=== PATIENT | female | born 1980 | race Caucasian/White ===

== ENCOUNTER 2024-07-09 14:58 | Outpatient (CLI) | payer BC, SELFPAY ==
--- NOTE | ~2024-07-09 | XR_ITS ---
EXAMINATION: XR wrist RT min 3V DATE: 07/09/2024 15:20 INDICATION: Sprain of the carpal joint the right hand TECHNIQUE: Posteroanterior, ulnar deviation, oblique, and lateral views of the right wrist were obtai yonis. COMPARISON: none FINDINGS: Alignment is normal. No fracture. Joint spaces are normal. Soft tissues are unremarkable. IMPRESSION: 1. Negative right wrist radiographs. Reviewed, dictated and finalized at location A. E WORKER
== END 2024-07-09 14:59 | disposition home or self-care (01) ==
PROVIDERS: Visit Provider Plastic Surgery
DX: S63.511A Sprain of carpal joint of right wrist, initial encounter (principal); X58.XXXA Exposure to other specified factors, initial encounter
CPT/HCPCS: 73110

== ENCOUNTER 2024-08-01 13:38 | Outpatient (CLI) | payer BC, SELFPAY ==
--- NOTE | ~2024-08-01 | MR_ITS ---
EXAMINATION: MR wrist RT wo/w con DATE: 08/01/2024 14:24 INDICATION: Right wrist ganglion. Tear of the triangular fibrocartilage complex. Extensor carpi ulnar is tendinitis. TECHNIQUE: Magnetic resonance imaging (MRI) of the without and with 19 mL Multihance wrist was perfor med without intravenous contrast. Sequences performed include axial, sagittal and coronal T1-weighted FSE and T2-weighted FS FSE, sagittal PD-weighted FSE, sagittal fluid sensitive FSE STIR, axial T1-we ighted FS SE, and postcontrast, axial, sagittal and coronal T1-weighted FS FSE. COMPARISON: Wrist radiographs dated 07/09/2024 FINDINGS: Intrinsic ligaments: The lunotriquetral ligament is normal. There is partial tear of the central membranous component of t he scapholunate ligament. The dorsal and volar components of the scapholunate ligament remains normal . Triangular fibrocartilage complex (TFCC): The triangular fibrocartilage including its foveal and styloid attachments as well as the dorsal and volar radioulnar ligaments are normal. The ulnar collateral ligament, ulnotriquetral ligament and men iscal homologue are normal. There is a tear of the ulnar side of the extensor carpi ulnaris sub sheat h resulting in partial subluxation of the extensor carpi ulnaris tendon across the ulnar rim of the E CU groove. Extensor wrist: Extensor tendons of the wrist are normal. No tenosynovitis. Flexor wrist: The flexor tendons of the wrist are normal. No abnormality in the carpal tunnel with normal median n erve. Guyon's canal: Guyon's canal including the ulnar nerve and artery are normal. Bones/other: Small low signal intensity sclerotic bone island at the trapezoid. Normal marrow signal. No fracture, erosions, avascular necrosis or abnormal marrow replacing process. Mild osteoarthritis at the first- third carpal metacarpal joints. Joint spaces are otherwise normal with no focal cartilage defects jh reciated. No abnormally enhancing lesions identified. IMPRESSION: 1. Tear of the extensor carpi ulnaris sub sheath with partial subluxation of the otherwise normal ext ensor carpi ulnaris tendon across the ulnar rim of the ECU groove. 2. Partial tear of the central membranous component of the triangular fibrocartilage complex. 3. Mild osteoarthritis at the first-third carpometacarpal joints. Reviewed, dictated and finalized at location B. RMINATOR HELPER TERMITE IMPRESSION: 1. Tear of the extensor carpi ulnaris sub sheath with partial subluxation of th e otherwise normal extensor carpi ulnaris tendon across the ulnar rim of the EC U groove. 2. Partial tear of the central membranous component of the triangular fibrocart ilage complex. 3. Mild osteoarthritis at the first-third carpometacarpal joints.
== END 2024-08-01 13:39 | disposition home or self-care (01) ==
LOC: MICIMG 13:39
PROVIDERS: PCP Plastic Surgery; Visit Provider Plastic Surgery
DX: S66.811A Strain of other specified muscles, fascia and tendons at wrist and hand level, right hand, initial encounter (principal); S63.511A Sprain of carpal joint of right wrist, initial encounter; X58.XXXA Exposure to other specified factors, initial encounter
CPT/HCPCS: 73223; A9577

== ENCOUNTER 2024-11-27 00:49 | Day surgery (SDC) | payer BC, SELFPAY ==
[2024-11-20 10:01] VITALS: BMI 33.1
--- NOTE | 2024-11-20 10:08 | PC.NURSE ---
Report to the Outpatient Waiting Room, entrance under the green pavilion located off [facility], at time _0730_ on date _[id number]_. Planned Procedure Time: _0930_.? Time changes happen often and if your time is changed the preop area will call you the afternoon before. - You and your visitor will be asked to self-screen and do not enter if you have any COVID symptoms. Please call surgeon if you need to reschedule. - A mask is optional within the hospital at this time. Patients may have clear liquids (water, carbonated beverages, clear teas, apple juice) until 3 hours prior to surgery with a maximum of 20 ounces. - No food from midnight until time of surgery and no smoking, or chewing tobacco (or any form of nicotine). No chewing gum, candy or mints. Take only the following medications with a SIP of water on the morning of surgery: ___Zofran OK if needed.____ DO NOT STOP ANY OF YOUR OTHER PRESCRIPTION MEDICATIONS PRIOR TO SURGERY EXCEPT THE FOLLOWING Hold all vitamins and supplements for 3 days per anesthesiologist. Medications to discontinue per physician Date to take last dose Please no make-up, nail kiswahili, hairspray, perfume, deodorant, or body powder the day of surgery.? No jewelry (including any body piercings) or valuables the day of surgery, leave them at home.? Please take a shower or bath the night before, or the morning of, surgery with an antibacterial soap.? Wear comfortable, loose fitting clothing.? - Jewelry must be removed prior to entering the operating room.? Rings and piercings that are not removed may be cut off. - The hospital will not accept responsibility for valuables.? - Please leave all valuables, including medications, at home the day of surgery. If you are going home after surgery, a licensed driver service technician must drive you home.? - NO public transportation without another adult if you receive anesthesia. - We recommend that an adult stay with you for 24 hours following discharge. - We also recommend that you do not drive, make important decision, drink alcoholic beverages, or take any drugs that were not prescribed by your health care provider for at least 24 hours after your discharge time. Follow any additional instructions given to you from your surgeon. Telephone instructions given to _Kyleigh___and asked if any additional questions and then verbalized understanding. Patient advised to call surgeon office or pre surgery nurse liaison [phone] if any additional questions.
--- NOTE | 2024-11-20 10:15 | PC.NURSE ---
Report to the Outpatient Waiting Room, entrance under the green pavilion located off [facility], at time _0730_ on date _[id number]_. Planned Procedure Time: _0930_.? Time changes happen often and if your time is changed the preop area will call you the afternoon before. - You and your visitor will be asked to self-screen and do not enter if you have any COVID symptoms. Please call surgeon if you need to reschedule. - A mask is optional within the hospital at this time. - No food or drink from midnight until time of surgery and no smoking, or chewing tobacco (or any form of nicotine). No chewing gum, candy or mints. Take only the following medications with a SIP of water on the morning of surgery: __Zofran Ok if needed. DO NOT STOP ANY OF YOUR OTHER PRESCRIPTION MEDICATIONS PRIOR TO SURGERY EXCEPT THE FOLLOWING Hold all vitamins and supplements for 3 days per anesthesiologist. Medications to discontinue per physician Date to take last dose Please no make-up, nail stateless, hairspray, perfume, deodorant, or body powder the day of surgery.? No jewelry (including any body piercings) or valuables the day of surgery, leave them at home.? Please take a shower or bath the night before, or the morning of, surgery with an antibacterial soap.? Wear comfortable, loose fitting clothing.? - Jewelry must be removed prior to entering the operating room.? Rings and piercings that are not removed may be cut off. - The hospital will not accept responsibility for valuables.? - Please leave all valuables, including medications, at home the day of surgery. If you are going home after surgery, a licensed coach driver must drive you home.? - NO public transportation without another adult if you receive anesthesia. - We recommend that an adult stay with you for 24 hours following discharge. - We also recommend that you do not drive, make important decision, drink alcoholic beverages, or take any drugs that were not prescribed by your health care provider for at least 24 hours after your discharge time. Follow any additional instructions given to you from your surgeon. Telephone instructions given to Obdulio___and asked if any additional questions and then verbalized understanding. Patient advised to call surgeon office or pre surgery nurse liaison [phone] if any additional questions.
--- NOTE | 2024-11-26 14:48 | P.PNAN_ITS ---
Anes - Initial Pre Proc Eval Procedure: Operation Date: 11/27/24 09:00 Proposed Procedures p Right Wrist Arthroscopy and Extensor Carpi Ulnaris Sheath Repair - Aixa Owen MD Date/Time: 11/26/24 14:48 Surgeon: Aixa Owen MD Pre Op Diagnosis: Sprain of Carpal Joint Right Wrist Patient Data Age: 44 Gender: F Height: 1.68 m Weight: 93.2 kg Allergies Allergy/AdvReac Type Severity Reaction Status Date / Time Sulfa (Sulfonamide Allergy Rash Verified 11/27/24 07:41 Antibiotics) Home Medications ?Medication ?Instructions ?Recorded ?Confirmed ?Type famotidine 40 mg tablet (Pepcid) 40 mg PO HS 11/20/24 11/20/24 History galcanezumab-gnlm 120 mg/mL 120 mg subcut MONTHLY 11/20/24 11/20/24 History subcutaneous pen injector (Emgality Pen) hyoscyamine sulfate 0.375 mg 0.375 mg PO BID 11/20/24 11/27/24 History tablet,extended release,12 hr melatonin 10 mg capsule 10 mg PO HS 11/20/24 11/20/24 History metoclopramide HCl 5 mg tablet 5 mg PO QID PRN nausea and vomiting 11/20/24 11/20/24 History (Reglan) omeprazole 40 mg capsule,delayed 40 mg PO BID 11/20/24 11/20/24 History release ondansetron HCl 4 mg tablet 4 mg PO Q6-8H PRN nausea and 11/20/24 11/20/24 History vomiting topiramate 100 mg tablet 100 mg PO BID 11/20/24 11/20/24 History trazodone 50 mg tablet 50 mg PO HS 11/20/24 11/20/24 History cephalexin 500 mg capsule 500 mg PO Q12H #14 caps 11/27/24 Rx hydrocodone 5 mg-acetaminophen 325 1 tablet PO Q6H PRN pain #12 tabs 11/27/24 Rx mg tablet Patient hx anesthesia problems: none Family hx anesthesia problems: none Results Review: All pre-operative results and documents have been reviewed as part of the pre- operative evaluation. COUNTS INCLUDE 234 BEDS AT THE [facility] Past Medical History Medical History (Updated 11/27/24 @ 08:06 by Nima Nguyen DO) GERD (gastroesophageal reflux disease) Social History Social History Smoking status: Never smoker Anes - Eval Final PreProcedure Day of Procedure 11/26/24 14:48 Patient weight: obese Heart: regular rate and rhythm Lungs: clear to auscultation Airway: Mallampati scale class II Neurological: alert and oriented Last oral intake: >/= 8 hours ASA classification: II Emergent: no Anesthetic plan: proceed Anesthesia type and monitoring: general GIVS and standard monitoring Results Review: All pre-operative results and documents have been reviewed as part of the pre- operative evaluation. Informed Consent: The patient's anesthetic plan and its attendant risks and benefits were discussed with the patient/family/POA. Questions were solicited and answers provided to the satisfaction of the patient/family/POA.
[2024-11-27] VITALS (9 sets, daily range): BP systolic 114–125; BP diastolic 51–77; PULSE 60–79; RESP 10–14; TEMP 36.6–37.1; O2SAT 98–100
--- OUTSIDE RECORDS SUMMARY | 2024-11-27 00:52 | XMS_ITS | Clinical Summary ---
Author Organization [facility] [address] [place] [address] Care Team Providers Care Boat Deckhand Name Role Phone China Page MD Primary Care Provider [phone] Allergies Active Allergy Reactions Criticality Noted Date Comments Sulfa (Sulfonamide Antibiotics) Unknown,Other (See comments) Low 05/09/2010 Medications omeprazole (PriLOSEC) 40 mg capsule Take 1 capsule (40 mg total) by mouth daily Active traZODone (DESYREL) 50 mg tablet Take 1 tablet (50 mg total) by mouth nightly Active levonorgestrel (MIRENA) IUD Active topiramate (TOPAMAX) 50 mg tablet 06/16/20 20 Active famotidine (PEPCID) 20 mg tablet Take 1 tablet (20 mg total) by mouth 2 (two) times a day Active scopolamine 1 mg over 3 days patch 3 day scopolamine 1 mg over 3 days transdermal patch APPLY 1 PATCH TOPICALLY TO THE SKIN EVERY 72 HOURS DIRECTED 02/20/20 21 Active metoclopramide (REGLAN) 5 mg tablet TAKE 2 TABLETS BY MOUTH THREE TIMES DAILY BEFORE MEALS 10/22/19 22 Active galcanezumab-gnlm (Emgality Pen) 120 mg/mL pen injector Inject 1 mL under the skin every 4 (four) weeks 06/21/20 21 Active tretinoin (RETIN-A) 0.05 % cream Apply topically nightly 11/09/19 24 Active hyoscyamine ER (LEVBID) 0.375 mg 12 hr tablet Take 1 tablet (375 mcg total) by mouth every 12 (twelve) hours 10/28/19 24 Active hyoscyamine (LEVSIN) 0.125 mg SL tablet Take 1 tablet (0.125 mg total) by mouth 10/10/19 24 Active clindamycin (CLEOCIN T) 1 % lotion APPLY TO ARMPITS TWICE DAILY ON GOING Active gabapentin (NEURONTIN) 300 mg capsule gabapentin 300 mg capsule TAKE 1 CAPSULE BY MOUTH THREE TIMES DAILY 025 Disconti nued(Pat ient Reported ) phentermine (ADIPEX-P) 37.5 mg tablet 09/27/19 22 025 Disconti nued(Pat ient Reported ) rizatriptan CORPORATE ASSOCIATE ATTORNEY (MAXALT-CORPORATE ASSOCIATE ATTORNEY) 5 mg disintegrating tablet rizatriptan 5 mg disintegrating tablet 03/18/20 025 Disconti nued(Pat ient Reported ) propranoloL (INDERAL) 40 mg tablet propranolol 40 mg tablet 03/19/20 025 Disconti nued(Pat ient Reported ) ZOLMitriptan (ZOMIG) 5 mg tablet zolmitriptan 5 mg tablet 06/21/20 025 Disconti nued(Pat ient Reported ) indomethacin (INDOCIN) 50 mg capsule indomethacin 50 mg capsule 10/27/19 025 Disconti nued(The rapy complete d) spironolactone (ALDACTONE) 50 mg tablet Take 1 tablet (50 mg total) by mouth daily 11/07/19 025 Disconti nued(Pat ient Reported ) butalbital-acetam inophen-caffeine (ESGIC) 50-325-40 mg per tablet TK 1 T PO EVERY 4 HOURS NEEDED FOR MIGRAINE. 07/06/20 025 Disconti nued(Pat ient Reported ) Hospital, Clinic, or Other Facility Administered Medication Ordered Dose Route Frequency Start Date End Date Status levonorgestreL (MIRENA) 20 mcg/24 hours (5 yrs) 52 mg IUD 1 eachIndications:Enc ounter for removal and reinsertion of intrauterine contraceptive device (IUD) 1 each intrauterine Continuous (implanted device) 06/22/2020 5 Active Active Problems Problem Noted Date Diagnosed Date Anxiety state 05/23/2012 Patellar tendinitis 05/23/2012 Absolute anemia 04/28/2011 Anal fissure 05/14/2009 Encounters Date Type Department Care Team Description 11/22/2024 9:30 AM CDT Office Visit [facility] at [address] [address] Bhakti Gilbert CNM Encounter for well woman exam with routine gynecological exam (Primary Dx); Screening mammogram for breast cancer from Last 3 Months Immunizations Immunization Administration Dates Next Due Influenza, Quadrivalent, Rec ombinant, Egg Free, Preservative Free, Intramuscular 05/11/2016 Influenza, Quadrivalent, Spl it, Intramuscular 05/09/2019,05/21/2015 Influenza, Quadrivalent, Spl it, Preservative Free, Intradermal 05/11/2016 Influenza, Quadrivalent, Spl it, Preservative Free, Intramuscular 04/17/2020,04/20/2018 Influenza, Trivalent, IM (MDV) 8,05/23/2017,05/07/2017,05/07 PPD TEST 12/27/2016 Pfizer SARS-CoV-2 Monovalent Vaccination (12+ Yrs) PURPLE 08/14/2020,07/24/2020 Surgical History Surgery Date Site/Laterality Comments COLPOSCOPY 02/09/2017 [place] 1, 2018 pap normal, HPV - INTRAUTERINE DEVICE INSERTION 11/10/2015 Mirena Insertion FOOT SURGERY 02/04/2014 - 03/06/2014 UPPER GASTROINTESTINAL ENDOSCOPY 2009, 2010 FOOT SURGERY 08/07/2018 - 08/06/2019 Medical History Medical History Date Comments GERD (gastroesophageal reflux disease) Migraines Family History Medical History Relation Name Comments Diverticulitis Father Diverticulitis Maternal Grandfather Alzheimer's disease Maternal Grandmother Natalie Clotting disorder Maternal Grandmother Natalie Cancer Mother April Clotting disorder Mother April Hyperlipidemia Mother April Lupus Mother April Rheum arthritis Mother April Lupus Mother's Brother Cancer Paternal Grandfather AJ Cancer Paternal Grandmother Lauren Colon cancer Paternal Grandmother Lauren Fibromyalgia Sister uterine adhesio ns, s/p hysterectomy Breast cancer Neg Hx Ovarian cancer Neg Hx Thrombophilia Neg Hx Uterine cancer Neg Hx Relation Name Status Comments Father Maternal Grandfather Maternal Grandmother Natalie Chen Mother's Brother Paternal Grandfather AJ Paternal Grandmother Lauren Sister Social History Tobacco Use Types Packs/Day Years Used Date Smoking Tobacco: Never Smokeless Tobacco: Never Tobacco Cessation:Counseling Given: Not Answered Comments No Sex and Gender Information Value Date Recorded Sex Assigned at Not on file Legal Sex Female 8:29 AM CDT Gender Identity Not on file Sexual Orientation Not on file Obstetrics History Para Term AB IAB SAB Ectopic Multiple Livin g Live Births 0 0 0 0 0 0 0 0 0 0 0 Last Filed Vital Signs Vital Sign Reading Time Taken Comments Blood Pressure 108/70 11/22/2024 9:19 AM CDT Pulse 92 10/07/2020 6:09 AM CASINO BEVERAGE SERVER Temperature 36.3 C (97.4 F) 08/04/2020 7:53 AM CASINO BEVERAGE SERVER Respiratory Rate - - Oxygen Saturation 100% 10/07/2020 6:09 AM CASINO BEVERAGE SERVER Inhaled Oxygen Concentration - - Weight 94.8 kg (208 lb 14.4 oz) 11/22/2024 9:19 AM CDT Height 167.6 cm (5' 5.98 ) 11/22/2024 9:19 AM CD T Body Mass Index 33.73 11/22/2024 9:19 AM CDT Plan of Treatment Health Maintenance Due Date Last Done Comments Depression Screening 1980 Hepatitis C Screening 1980 DTaP/Tdap/Td Vaccine (1 - Tdap) 1993 Varicella Vaccines (1 of 2 - 13+ 2-dose series) 1995 Hepatitis B Screening 2000 Covid-19 Vaccine ( season) 2024 06/30/2021, 08/14/2020, 07/24/2020 Breast Cancer Screening-Mammogram 11/16/2024 11/17/2023, 11/17/2023, 06/27/2022, Additional history exists Influenza Vaccine (Season Ended) 2025 04/17/2020, 05/09/2019, 05/07/2018, Additional history exists Regular Well Visit/Exam 18-64 11/22/2025 11/22/2024, 11/14/2023, 11/10/2022, Additional history exists Cervical Cancer Screening 11/08/2026 11/08/2021, HPV Vaccines Aged Out No longer eligi ble based on patient's age to complete this topic Pneumococcal vaccine <65 Aged Out No longer eligible based on patient's age to complete this topic Procedures Procedure Name Priority Date/Time Associated Diagnosis Comments PAP AND HIGH RISK HPV, REFLEX TO GENOTYPING Routine 11/08/2021 2:23 PM CDT Routine gynecological examination from Last 3 Months or Most Recently Relevant to Health Maintenance Results * Pap and High Risk HPV, reflex to Genotyping (11/08/2021 2:23 PM CDT) Thin prep (Pap test) 11/08/2021 2:23 PM CDT 11/10/2021 11:09 AM CDT Narrative PATHOLOGY [facility] - 11/12/2021 9:52 AM CDT [facility] results best viewed via link to PDF [address] [address] Tele: Leatha Madrid MD - Hide Inspector CYTOLOGY REPORT Note to Patients: This report may contain a detailed description of human tissue sent by a health care provider to the laboratory for pathologic evaluation. The content of this report is essential for diagnosis and may provide important critical findings. This information may be unfamiliar to patients to review without a medical professional present. It is advised that the patient review this report in the presence of a health care provider who can answer questions and explain the details. Patient Name: TIFFANIE WINSLOW Address: [address] [place] [address]- Gender: F : 1980 (Age: 41) Service: Location: [facility] #: [id number] Patient Type: [facility] SPECIMEN Taken: 11/08/2021 Reported: 11/12/2021 Physician(s): Florida Abbott M.D. FINAL DIAGNOSIS: Specimen Type: - ThinPrep Pap and HPV w/ reflex Genotyping Statement of Specimen Adequacy: Source: Cervical/Endocervical - Satisfactory for interpretation - Endocervical /Transformation Zone component present - Case screened using computer assisted imaging technology and manually re- screened by a word processing supervisor. General Categorization: - Negative for intraepithelial lesion or malignancy 11/12/2021 09:52 Batool Ladd M.S., CT (ASCP) Report Reviewed and Electronically Signed By Batool Ladd M.S., BASHIR (ASCP) Clerical Data Follow A; [id number] DIAGNOSIS COMMENT: Ancillary Testing: HPV High Risk Group (16, 18, 31, 33, 35, 39, 45, 51, 52, 56, 58, 59, 66 and 68) - Not Detected Reference Range: Not Detected This test was performed using the TAI 4800 CLINICAL DIAGNOSIS AND HISTORY Menstrual History: Amenorrhea Contraceptive History: IUD REPORT IMAGES AND/OR SCANNED DOCUMENTS ONLY VIEWABLE IN PDF FORMAT The Pap test is a screening test used to aid in the detection of cervical cancer and its precursors. It should not be the sole means by which malignant and premalignant lesions are diagnosed. Both false negative and false positive results may occur. It also has poor sensitivity for the detection of endometrial lesions and should not be used to evaluate suspected endometrial abnormalities. For these reasons it is most important to obtain Pap tests at regular intervals, as recommended by your physician or nurse practitioner. Florida Abbott MD LAB CYTOLOGY ORDERABLES F inal Result PATHOLOGY [facility] Laboratory Receiving [address] [place] [address] from Last 3 Months or Most Recently Relevant to Health Maintenance Insurance [facility] FEDERAL [facility] CHOICE [facility]US [facility] HMO/PPO Address: [address] [address] [place] [address] [facility] FEDERAL [facility] FEDERAL Care Teams Boat Deckhand Relationship Specialty [place] [id number] [facility] [address] [place] [address] PCP - General Internal Medicine 02/20/19
--- OUTSIDE RECORDS SUMMARY | 2024-11-27 00:52 | XMS_ITS | Encounter Summary ---
Author Organization [facility] Address [address] [place] [address] Care Team Providers Care Technicians And Trades Workers Name Role Phone China Page MD Primary Care Provider [phone] Encounter Details Date Type Department Care Team (Late Contact Info) Description 12/30/2015 Lab Requisition [facility] General Laboratory Services [address] [address] Elroy Whitman MD NO ADDRESS ON FILE Social History Tobacco Use Types Packs/Day Years Used Date Smoking Tobacco: Never Smokeless Tobacco: Never Alcohol Use Standard Drinks/Week Comments Yes 0 (1 standard drink = 0.6 oz pur e alcohol) rarely Comments No Sex and Gender Information Value Date Recorded Sex Assigned at Not on file Legal Sex Female 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 Gender Identity Not on file Sexual Orientation Not on file Occupation Industry Job Start Date Job End Date Not on file Not on file Not on file Not on file documented as of this encounter Plan of Treatment Upcoming Encounters Date Type Department Care Team (Late Contact Info) Description 11/29/2024 9:30 AM CDT Procedure visit [facility] Neurology [address] [place] [address] Vic Barraza MD [address] [place] [address] 02/18/2025 8:30 AM CDT Office Visit [facility] Neurology [address] [place] [address] Vic Barraza MD [address] [place] [address] 02/21/2025 9:30 AM CDT Procedure visit [facility] Neurology [address] [place] [address] Vic Barraza MD [address] [place] [address] 05/13/2025 9:15 AM CDT Office Visit [facility] Pulmonology [facility] [address] [place] [address] Joe Pascal MD [address] [place] [address] 11/04/2025 9:00 AM CDT Office Visit [facility] Primary Care - [facility] [address] [address] [place] [address] [address] documented as of this encounter Procedures Procedure Name Priority Date/Time Associated Diagnosis Comments HEPATITIS C ANTIBODY Routine 12/30/2015 9:00 AM CDT ALT Routine 12/30/2015 9:00 AM CDT documented in this encounter Results * HEPATITIS C ANTIBODY (12/30/2015 9:00 AM CDT) HEPATITIS C AB NON-REACTI VE Non-reacti ve 12/30/2015 1:15 PM CDT [facility]OR[facility]ORY SERVICES [facility] Blood 12/30/2015 9:00 AM CDT 12/30/2015 12:29 PM CDT us Elroy Whitman MD CHEMISTRY ORDERABLES Final Re sult [facility] CLIA # [id number] [facility] [address] [place] [address] * ALT (12/30/2015 9:00 AM CDT) ALT 18 <=33 U/L 12/30/2015 12:58 PM CDT [facility] Blood 12/30/2015 9:00 AM CDT 12/30/2015 12:29 PM CDT Elroy Whitman MD CHEMISTRY ORDERABLES Final Re sult Performing Organization Address [facility] Co de Phone Number [facility] [employer] [facility] CLIA # [id number] [facility] [address] [place] [address] documented in this encounter Visit Diagnoses Not on filedocumented in this encounter Care Teams Technicians And Trades Workers Relationship Specialty [place] [id number] [address] PCP - General 10/04/12 documented as of this encounter
--- OUTSIDE RECORDS SUMMARY | 2024-11-27 00:52 | XMS_ITS | Encounter Summary ---
Author Organization [facility] Address [address] [place] [address] Care Team Providers Care Stapler Machine Name Role Phone China Page MD Primary Care Provider [phone] Encounter Details Date Type Department Care Team (Late st Contact Info) Description 11/10/2015 Lab Requisition [facility] General Laboratory Services [address] [address] Elroy Whitman MD NO ADDRESS ON FILE Social History Tobacco Use Types Packs/Day Years Used Date Smoking Tobacco: Never Smokeless Tobacco: Never Alcohol Use Standard Drinks/Week Comments Yes 0 (1 standard drink = 0.6 oz pur e alcohol) rarely Comments No Sex and Gender Information Value Date Recorded Sex Assigned at Not on file Legal 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 Gender Identity Not on file Sexual Orientation Not on file Occupation Industry Job Start Date Job End Date Not on file Not on file Not on file Not on file documented as of this encounter Plan of Treatment Upcoming Encounters Date Type Department Care Team (Late st Contact Info) Description 11/29/2024 9:30 AM CDT Procedure visit [facility] Neurology [address] [place] [address] Vic Barraza MD [address] [place] [address] 02/18/2025 8:30 AM CDT Office Visit [facility] Neurology [address] [place] [address] Vic Barraza MD [address] [place] [address] 02/21/2025 9:30 AM CDT Procedure visit [facility] Neurology [address] [place] [address] Vic Barraza MD [address] [place] [address] 05/13/2025 9:15 AM CDT Office Visit [facility] Pulmonology [facility] [address] [place] [address] Joe Pascal MD [address] [place] [address] 11/04/2025 9:00 AM CDT Office Visit [facility] Primary Care - [facility] [address] [address] [place] [address] [address] documented as of this encounter Procedures Procedure Name Priority Date/Time Associated Diagnosis Comments HEPATITIS C ANTIBODY Routine 11/10/2015 9:20 AM CDT ALT Routine 11/10/2015 9:20 AM CDT documented in this encounter Results * HEPATITIS C ANTIBODY (11/10/2015 9:20 AM CDT) HEPATITIS C AB NON-REACTI VE Non-reacti ve 11/10/2015 12:41 PM CDT [facility] Blood 11/10/2015 9:20 AM CDT 11/10/2015 12:04 PM CDT us Elroy Whitman MD CHEMISTRY ORDERABLES Final Re sult [facility] [place] CLIA # [id number] [facility] [address] [place] [address] * ALT (11/10/2015 9:20 AM CDT) ALT 13 <=33 U/L 11/10/2015 12:27 PM CDT [facility] Blood 11/10/2015 9:20 AM CDT 11/10/2015 12:04 PM CDT Elroy Whitman MD CHEMISTRY ORDERABLES Final Re sult Performing Organization Address [facility] Co de Phone Number [facility] [employer] [facility] CLIA # [id number] [facility] [address] [place] [address] documented in this encounter Visit Diagnoses Not on filedocumented in this encounter Care Teams Stapler Machine Relationship Specialty [place] [phone] [address] PCP - General 10/04/12 documented as of this encounter
--- OUTSIDE RECORDS SUMMARY | 2024-11-27 00:52 | XMS_ITS | Encounter Summary ---
Author Organization [facility] Address [address] [place] [address] Care Team Providers Care Feed Grinder Name Role Phone China Page MD Primary Care Provider [phone] Encounter Details Date Type Department Care Team (Late Contact Info) Description 10/05/2015 Lab Requisition [facility] General Laboratory Services [address] [address] Elroy Whitman MD NO ADDRESS ON FILE Social History Tobacco Use Types Packs/Day Years Used Date Smoking Tobacco: Never Smokeless Tobacco: Never Alcohol Use Standard Drinks/Week Comments Yes 0 (1 standard drink = 0.6 oz pur e alcohol) rarely Comments No Sex and Gender Information Value Date Recorded Sex Assigned at Not on file Legal Sex Female 7:22 PM CEMENTER HAND Gender Identity Not on file Sexual Orientation Not on file Occupation Industry Job Start Date Job End Date Not on file Not on file Not on file Not on file documented as of this encounter Plan of Treatment Upcoming Encounters Date Type Department Care Team (Late Contact Info) Description 11/29/2024 9:30 AM CDT Procedure visit [facility] Neurology [address] [place] [address] Vic Barraza MD [address] [place] [address] 02/18/2025 8:30 AM CDT Office Visit [facility] Neurology [address] [place] [address] Vic Barraza MD [address] [place] [address] 02/21/2025 9:30 AM CDT Procedure visit [facility] Neurology [address] [place] [address] Vic Barraza MD [address] [place] [address] 05/13/2025 9:15 AM CDT Office Visit [facility] Pulmonology [facility] [address] [place] [address] Joe Pascal MD [address] [place] [address] 11/04/2025 9:00 AM CDT Office Visit [facility] Primary Care - [facility] [address] [address] [place] [address] [address] documented as of this encounter Procedures Procedure Name Priority Date/Time Associated Diagnosis Comments HEPATITIS B SURFACE AB, QUANT Routine 09/29/2015 6:37 PM CEMENTER HAND HIV DETECTION W/REFLX CONFIRMATION Routine 09/29/2015 6:37 PM CEMENTER HAND HEPATITIS C ANTIBODY Routine 09/29/2015 6:37 PM CEMENTER HAND ALT Routine 09/29/2015 6:37 PM CEMENTER HAND documented in this encounter Results * HIV DETECTION W/REFLX CONFIRMATION (09/29/2015 6:37 PM CEMENTER HAND) HIV-1 AND 2 ABS NON-REACTI VE Non-reacti ve 10/12/2015 10:13 AM [facility] Blood Venipuncture - L ab Collect / Unknown 09/29/2015 6:37 PM CEMENTER HAND 10/05/2015 12:59 PM CEMENTER HAND Elroy Whitman MD CHEMISTRY ORDERABLES Final Re sult Performing Organization Address City/[facility]/ZIP Co de Phone Number [facility] CLIA # [id number] [address] [address] * HEPATITIS C ANTIBODY (09/29/2015 6:37 PM CEMENTER HAND) Pathologist [facility] HEPATITIS C AB NON-REACTI VE Non-reacti ve 10/05/2015 2:13 PM CEMENTER HAND [facility] Blood Venipuncture - L ab Collect / Unknown 09/29/2015 6:37 PM CEMENTER HAND 10/05/2015 12:59 PM CEMENTER HAND Elroy Whitman MD CHEMISTRY ORDERABLES Final Re sult Performing Organization Address City/[facility] Co de Phone Number [facility] CLIA # [id number] [address] [address] * HEPATITIS B SURFACE AB, QUANT (09/29/2015 6:37 PM CEMENTER HAND) Pathologist [facility] HEPATITIS B SURF AB,QN 1,000.0 mlU/mL 10/05/2015 10:18 PM [facility] LABORATORY [facility] HEPATITIS B SURFACE AB INTERP Reactive See Interp 10/05/2015 10:18 PM [facility] Blood Venipuncture - L ab Collect / Unknown 09/29/2015 6:37 PM CEMENTER HAND 10/05/2015 12:59 PM CEMENTER HAND Narrative [facility] LABORATORY [facility] - 10/05/2015 10:18 PM CEMENTER HAND Patient has immunity to Hepatitis B virus. This assay is used to determine immune status to Hepatitis B as greater than or equal to 10 mIU/mL as per CDC guidelines (MMWR:vol 55: RR-16, 2006). Elroy Whitman MD CHEMISTRY ORDERABLES Final Re sult Performing Organization Address City/[facility]/ZIP Co de Phone Number [facility]ORATORY [facility] CLIA# [id number] [address] [place] [address] * ALT (09/29/2015 6:37 PM CEMENTER HAND) ALT 12 <=33 U/L 10/05/2015 1:31 PM CEMENTER HAND [facility] Blood Venipuncture - L ab Collect / Unknown 09/29/2015 6:37 PM CEMENTER HAND 10/05/2015 12:59 PM CEMENTER HAND Elroy Whitman MD CHEMISTRY ORDERABLES Final Re sult Performing Organization Address [facility] Co de Phone Number [facility] CLIA # [id number] [address] [place] [address] documented in this encounter Visit Diagnoses Not on filedocumented in this encounter Care Teams Feed Grinder Relationship Specialty [place] [phone] [address] PCP - General 10/04/12 documented as of this encounter
--- OUTSIDE RECORDS SUMMARY | 2024-11-27 00:52 | XMS_ITS | Encounter Summary ---
Author Organization [facility] Address [address] [place] [address] Care Team Providers Care Bpm Analyst Name Role Phone Chnia Page MD Primary Care Provider [phone] Reason for Visit * Reason Onset Date Comments F/U after injection phone call 06/06/2023 Encounter Details Date Type Department Care Team (Late st Contact Info) Description 06/06/2023 Telephone [facility] [address] [place] [address] Danyelle Bailey GN F/U after injection phone call Social History Tobacco Use Types Packs/Day Years Used Date Smoking Tobacco: Never Smokeless Tobacco: Never Alcohol Use Standard Drinks/Week Comments Yes 0 (1 standard drink = 0.6 oz pur e alcohol) rarely Comments No Sex and Gender Information Value Date Recorded Sex Assigned at Not on file Legal Sex Female 7:22 PM VIDEO INTERN Gender Identity Not on file Sexual Orientation Not on file Occupation Industry Job Start Date Job End Date Not on file Not on file Not on file Not on file documented as of this encounter Miscellaneous Notes * Telephone Encounter - Danyelle Bailey GN - 06/06/2023 1:04 PM CDT Call 06/06/2023 1:04 PM Name: Kyleigh Winslow Call placed and Kyleigh answered the phone. This RN identified self and the purpose of the call was to check on how the patient is doing following Ganglion Impar injection. Have you been experiencing any fever, chills, redness or swelling at the injection site? no Any other new concerns? yes - 2nd injection that hasn't worked for her. How would you rate your pain relief at this time? Less than 50% pain relief Sharp Intermittent Other Tailbone Pain Rating is: 0/10 at it's best 7/10 at it's worst 5/10 on average (0 = no pain and 10 = worst pain imaginable) Did you have increased level of function, if yes please explain: none Any improvement in quality of life? no if yes please explain: n/a Have you been started on antibiotics for any reason? no N/a Diabetes Since the injection what have your blood sugars been running Based on these results, You may have this procedure repeated in 3 months. As pt hasn't had any success with the 2 injections (sme kind), she has had in this area, she doesn't wish at this time to proceed with care. Mentioned Debbie VISITOR SERVICES REPRESENTATIVE clinical note says to try pelvic floortherapy. She isn't wanting to do that at this time. She will follow up with Dr Gaviria in clinic as needed. Verified with patient contact information for Dr. Gaviria was shared. Instructed to contact us with any questions or concerns at [phone] option 6 documented in this encounter Plan of Treatment Upcoming Encounters Date Type Department Care Team (Late st Contact Info) Description 11/29/2024 9:30 AM CDT Procedure visit [facility] Neurology [address] [place] [address] Vic Barraza MD [address] [place] [address] 02/18/2025 8:30 AM CDT Office Visit [facility] Neurology [address] [place] [address] Vic Barraza MD [address] [place] [address] 02/21/2025 9:30 AM CDT Procedure visit [facility] Neurology [address] [place] [address] Vic Barraza MD [address] [place] [address] 05/13/2025 9:15 AM CDT Office Visit [facility] Pulmonology [facility] [address] [place] [address] Joe Pascal MD [address] [place] [address] 11/04/2025 9:00 AM CDT Office Visit [facility] Primary Care - [facility] [id number] [place] [address] China Page [place] [id number] [place] [address] documented as of this encounter Visit Diagnoses Not on filedocumented in this encounter Care Teams Bpm Analyst Relationship Specialty Start Date End Date China Page MD [address] [place] [address] PCP - General 10/04/12 documented as of this encounter
--- OUTSIDE RECORDS SUMMARY | 2024-11-27 00:52 | XMS_ITS | Continuity of Care Document ---
Author Organization [facility] Address [address] [facility] [address] [place] [address] Phone Care Team Providers Care Devops Consultant Name Role Phone Nick OTR/Wilfrid, Shannan ISIDRO Unavailable Unava ilable Procedures Procedure Date Progress Note Therapeutic Activities Neuromuscular Re-Ed Therapeutic Exercise Hot or Cold Pack Therapeutic Activities Neuromuscular Re-Ed Therapeutic Exercise Manual Therapy Hot or Cold Pack Electrical Stimulation Therapeutic Activities Neuromuscular Re-Ed Therapeutic Exercise Manual Therapy Hot or Cold Pack Electrical Stimulation Therapeutic Activities Neuromuscular Re-Ed Therapeutic Exercise Manual Therapy Hot or Cold Pack Electrical Stimulation Therapeutic Activities Neuromuscular Re-Ed Therapeutic Exercise Hot or Cold Pack Manual Therapy Electrical Stimulation Therapeutic Activities Neuromuscular Re-Ed Therapeutic Exercise Manual Therapy Hot or Cold Pack Electrical Stimulation Therapeutic Activities Neuromuscular Re-Ed Therapeutic Exercise Manual Therapy Hot or Cold Pack Electrical Stimulation Therapeutic Activities Neuromuscular Re-Ed Therapeutic Exercise Manual Therapy Therapeutic Activities Neuromuscular Re-Ed Therapeutic Exercise Manual Therapy Electrical Stimulation Progress Note Therapeutic Activities Neuromuscular Re-Ed Therapeutic Exercise Manual Therapy Electrical Stimulation Therapeutic Activities Neuromuscular Re-Ed Therapeutic Exercise Electrical Stimulation Therapeutic Activities Neuromuscular Re-Ed Therapeutic Exercise Manual Therapy Electrical Stimulation Therapeutic Activities Neuromuscular Re-Ed Therapeutic Exercise Manual Therapy Electrical Stimulation Therapeutic Activities Neuromuscular Re-Ed Therapeutic Exercise Manual Therapy Electrical Stimulation Therapeutic Activities Neuromuscular Re-Ed Therapeutic Exercise Manual Therapy Electrical Stimulation Therapeutic Activities Neuromuscular Re-Ed Therapeutic Exercise Hot or Cold Pack Therapeutic Activities Neuromuscular Re-Ed Therapeutic Exercise Electrical Stimulation Therapeutic Activities Neuromuscular Re-Ed Therapeutic Exercise Electrical Stimulation Therapeutic Activities Neuromuscular Re-Ed Therapeutic Exercise Electrical Stimulation Manual Therapy Therapeutic Activities Neuromuscular Re-Ed Therapeutic Exercise Manual Therapy Therapeutic Activities Neuromuscular Re-Ed Therapeutic Exercise Manual Therapy Electrical Stimulation Therapeutic Activities Neuromuscular Re-Ed Therapeutic Exercise Manual Therapy Therapeutic Activities Neuromuscular Re-Ed Therapeutic Exercise Manual Therapy Electrical Stimulation Progress Note Therapeutic Activities Neuromuscular Re-Ed Therapeutic Exercise Manual Therapy Electrical Stimulation Progress Note Therapeutic Activities Neuromuscular Re-Ed Therapeutic Exercise Manual Therapy Electrical Stimulation Therapeutic Activities Neuromuscular Re-Ed Therapeutic Exercise Manual Therapy Electrical Stimulation Therapeutic Activities Neuromuscular Re-Ed Therapeutic Exercise Manual Therapy Electrical Stimulation Therapeutic Activities Neuromuscular Re-Ed Therapeutic Exercise Manual Therapy Therapeutic Activities Neuromuscular Re-Ed Therapeutic Exercise Manual Therapy Electrical Stimulation Therapeutic Activities Neuromuscular Re-Ed Therapeutic Exercise Manual Therapy Electrical Stimulation Therapeutic Activities Neuromuscular Re-Ed Therapeutic Exercise Manual Therapy Electrical Stimulation Therapeutic Activities Neuromuscular Re-Ed Therapeutic Exercise Manual Therapy Electrical Stimulation Progress Note Therapeutic Activities Neuromuscular Re-Ed Therapeutic Exercise Manual Therapy Electrical Stimulation Therapeutic Activities Neuromuscular Re-Ed Therapeutic Exercise Electrical Stimulation Therapeutic Activities Neuromuscular Re-Ed Therapeutic Exercise Electrical Stimulation Therapeutic Activities Neuromuscular Re-Ed Therapeutic Exercise Electrical Stimulation Therapeutic Activities Neuromuscular Re-Ed Therapeutic Exercise Electrical Stimulation Therapeutic Activities Neuromuscular Re-Ed Therapeutic Exercise Hot or Cold Pack Therapeutic Activities Neuromuscular Re-Ed Therapeutic Exercise Electrical Stimulation Therapeutic Activities Neuromuscular Re-Ed Therapeutic Exercise Hot or Cold Pack Electrical Stimulation Progress Note Therapeutic Activities Neuromuscular Re-Ed Therapeutic Exercise Hot or Cold Pack Therapeutic Activities Neuromuscular Re-Ed Hot or Cold Pack Therapeutic Exercise Therapeutic Activities Therapeutic Exercise Hot or Cold Pack Therapeutic Activities Therapeutic Exercise Hot or Cold Pack Therapeutic Activities Therapeutic Exercise Hot or Cold Pack Therapeutic Activities Therapeutic Exercise Hot or Cold Pack OT Evaluation Low Complexity Therapeutic Activities Therapeutic Exercise Hot or Cold Pack Therapeutic Activities Neuromuscular Re-Ed Progress Note Manual Therapy Manual Therapy Neuromuscular Re-Ed Therapeutic Activities Manual Therapy Therapeutic Activities Neuromuscular Re-Ed Hot or Cold Pack Therapeutic Activities Neuromuscular Re-Ed Manual Therapy Therapeutic Exercise Therapeutic Activities Neuromuscular Re-Ed Therapeutic Exercise Manual Therapy Therapeutic Activities Manual Therapy Therapeutic Exercise Neuromuscular Re-Ed Neuromuscular Re-Ed Therapeutic Activities Therapeutic Exercise Manual Therapy Therapeutic Activities Manual Therapy Neuromuscular Re-Ed Therapeutic Exercise Therapeutic Exercise Manual Therapy Neuromuscular Re-Ed Therapeutic Exercise PT Evaluation Low Complexity Neuromuscular Re-Ed Manual Therapy Progress Note Neuromuscular Re-Ed Therapeutic Exercise Manual Therapy Hot or Cold Pack Electrical Stimulation Iontophoresis Therapeutic Activities Therapeutic Exercise Manual Therapy Hot or Cold Pack Electrical Stimulation Iontophoresis Therapeutic Activities Therapeutic Exercise Manual Therapy Hot or Cold Pack Iontophoresis Electrical Stimulation Therapeutic Activities Therapeutic Exercise Manual Therapy Hot or Cold Pack Iontophoresis Electrical Stimulation Neuromuscular Re-Ed Therapeutic Exercise Manual Therapy Hot or Cold Pack Iontophoresis Electrical Stimulation Neuromuscular Re-Ed Hot or Cold Pack Therapeutic Exercise Iontophoresis Electrical Stimulation Neuromuscular Re-Ed Manual Therapy Hot or Cold Pack Iontophoresis Electrical Stimulation Therapeutic Activities Manual Therapy Hot or Cold Pack Iontophoresis Electrical Stimulation PT Evaluation Moderate Complexity Neuromuscular Re-Ed Manual Therapy Therapeutic Activities Neuromuscular Re-Ed Therapeutic Exercise Manual Therapy Therapeutic Activities Neuromuscular Re-Ed Therapeutic Exercise Manual Therapy Therapeutic Activities Neuromuscular Re-Ed Manual Therapy Therapeutic Activities Neuromuscular Re-Ed Manual Therapy Therapeutic Exercise Therapeutic Activities Therapeutic Exercise Neuromuscular Re-Ed Manual Therapy Therapeutic Activities Manual Therapy Neuromuscular Re-Ed Therapeutic Activities Neuromuscular Re-Ed Manual Therapy Therapeutic Exercise Therapeutic Activities Neuromuscular Re-Ed Manual Therapy Therapeutic Exercise Neuromuscular Re-Ed Therapeutic Activities Manual Therapy Therapeutic Exercise Therapeutic Activities Neuromuscular Re-Ed Manual Therapy Therapeutic Exercise Therapeutic Activities Neuromuscular Re-Ed Manual Therapy Therapeutic Exercise Therapeutic Activities Neuromuscular Re-Ed Manual Therapy Therapeutic Exercise Therapeutic Activities Neuromuscular Re-Ed Manual Therapy Therapeutic Exercise Therapeutic Activities Neuromuscular Re-Ed Manual Therapy Therapeutic Exercise Therapeutic Activities Neuromuscular Re-Ed PT Evaluation Low Complexity Therapeutic Activities Neuromuscular Re-Ed Progress Note Therapeutic Exercise Manual Therapy Hot or Cold Pack Therapeutic Exercise Manual Therapy Hot or Cold Pack Therapeutic Exercise Manual Therapy Hot or Cold Pack Therapeutic Exercise Manual Therapy Hot or Cold Pack Therapeutic Exercise Manual Therapy Hot or Cold Pack Therapeutic Exercise Manual Therapy Hot or Cold Pack Therapeutic Exercise Manual Therapy Hot or Cold Pack Therapeutic Exercise Manual Therapy Hot or Cold Pack Therapeutic Exercise Neuromuscular Re-Ed Manual Therapy Hot or Cold Pack Therapeutic Exercise Neuromuscular Re-Ed Manual Therapy Hot or Cold Pack Therapeutic Exercise Manual Therapy Hot or Cold Pack Therapeutic Exercise Neuromuscular Re-Ed Manual Therapy Hot or Cold Pack Therapeutic Exercise Neuromuscular Re-Ed Manual Therapy Hot or Cold Pack Therapeutic Exercise Manual Therapy Hot or Cold Pack Electrical Stimulation Therapeutic Exercise Manual Therapy Hot or Cold Pack Electrical Stimulation PT Evaluation Moderate Complexity Therapeutic Exercise Hot or Cold Pack Electrical Stimulation Advance Directives Directive Yes / No Effective Date File Name No Information Encounters Encounter Description Practice Location Reason(s) For Visit Diagnoses Date Provider Providers Copied on Encounter [facility], [id number], tel:[phone] [place] No Information 3 Nick Campbell. [address] [place] [address], [facility] [place], [place]. tel:[phone] Referring Provider: Ajay Sykes [address] [place] [address], [address]. tel:[phone] [facility] [address], [id number], tel:[phone] [place] No Information [address] [facility] ([place], [place]), [address], [facility], . tel:[phone] Referring Provider: [place], [address]. tel:[phone] [facility] [facility] [address], [place], [id number], [place] tel:[phone] [place] No Information 3 Nick Campbell. [address] [place] [address], [address], [place], [facility], . tel:[phone] Referring Provider: Ajay Sykes, [address] [place], [address]. tel:[phone] [place] [address] [address] [facility], [place], [place], [id number], [place] tel:[phone] [place] No Information 3 Nick Campbell. [address] [place] [address], [address], [place], [facility], . tel:[phone] Referring Provider: Ajay Sykes [address] [place], [address]. tel:[phone] [place] [address] [address] [facility], [place], [id number], [place] tel:[phone] [place] No Information 3 Nick Campbell. [address] [place] [address], [address], [place], [facility], . tel:[phone] Referring Provider: Ajay Sykes [address] [place], [address]. tel:[phone] [place] [id number] [facility] [address], [place], [id number], [place] tel:[phone] [place] No Information 3 Nick Campbell. [address] [place] [address], [address], [place], [facility], . tel:[phone] Referring Provider: Ajay Sykes [address] [place], [address]. tel:[phone] [place] [id number] [facility] [address], [place], [id number], [place] tel:[phone] [place] No Information Dario-2 3- 3 Nick Campbell. [address] [place] [address], [address], [place], [facility], [place]. tel:[phone] Referring Provider: Ajay Sykes, [address] [place], [address]. tel:[phone] [address], [place], [place], [id number], tel:[phone] [place] No Information Jan- 3 Nick Campbell. [address] [place] [address], [address], [place], [address], [place]. tel:[phone] Referring Provider: Ajay Sykes, [address] [place], [address]. tel:[phone] [place] [address], [id number], tel:[phone] [place] No Information Jan-1 3 Nick Campbell. [address] [place] [address], [address], [place], [address], [place]. tel:[phone] Referring Provider: Ajay Sykes, [address] [place], [address]. tel:[phone] [place], [place] [address], [place], [place], [id number], tel:[phone] [place] No Information Jan-0 2 3 Nick Campbell. [address] [place] [address], [address], [place], [facility], [place]. tel:[phone] Referring Provider: Ajay Sykes [address] [place], [address]. tel:[phone] [place] [address], [place], [id number], tel:[phone] [place] No Information December-3 0- 3 Nick Campbell. [address] [place] [address], [address], [place], [facility], [place]. tel:[phone] Referring Provider: Ajay Sykes, [address], [place], [address]. tel:[phone] [facility] [address] [place], [place] [address] [address], [place], [id number], tel:[phone] [place] No Information 3 Nick Campbell. [address] [place] [address], [address], [place], [facility], . tel:[phone] Referring Provider: Ajay Sykes, [address], [place], [address]. tel:[phone] [facility] [address] [place], [place] [address], [place], [id number], tel:[phone] [place] No Information 3 Nick Campbell. [address] [place] [address], [address], [place], [facility], . tel:[phone] Referring Provider: Ajay Sykes [address] [place], [address]. tel:[phone] [place] [address] [place], [place] [address]u[address], [place], [id number], [place] tel:[phone] [place] No Information 3 Nick Campbell. [address] [place] [address], [address], [place], [facility], . tel:[phone] Referring Provider: Ajay Sykes [address] [facility] [place], [address]. tel:[phone] [place] [address] [facility] [address], [place], [place], [id number], [place] tel:[phone] [place] No Information 3 Nick Campbell. [address] [place] [address], [address], [place], [facility], . tel:[phone] Referring Provider: Ajay Sykes [address] [facility] [place], [address]. tel:[phone] [facility] [address], [place], [place], [id number], tel:[phone] [place] No Information December-0 3 Nuno Ttutle. . Referring Provider: Ajay Sykes, [address] [place], [address]. tel:[phone] [place] [address], [place], [id number], tel:[phone] [place] No Information December-0 3 Nick Campbell. [address] [place] [address], [address], [place], [facility], . tel:[phone] Referring Provider: Ajay Sykes [address] [place], [address]. tel:[phone] [place] [address], [id number], tel:[phone] [place] No Information December-0 3 Nick Campbell. [address] [place] [address], [address], [place], [facility], . tel:[phone] Referring Provider: Ajay Sykes [address] [place], [address]. tel:[phone] [place] [address], [id number], tel:[phone] [place] No Information Nov-2 3 Nick Campbell. [address] [place] [address], [address], [place], [facility], . tel:[phone] Referring Provider: Ajay Sykes [address] [place], [address]. tel:[phone] [place] [address], [id number], tel:[phone] [place] No Information 1 3 Nick Campbell. [address] [place] [address], [address], [place], [facility], . tel:[phone] Referring Provider: Ajay Sykes [address] [place], [address]. tel:[phone] [place] [address], [address] [place], [place] [address] [address], [place], [id number], [place] tel:[phone] [place] No Information Apr-1 3-202 3 Nick Campbell. [address] [place] [address], [address], [place], [address], [place]. tel:[phone] Referring Provider: Ajay Sykes, [address] [place] [address], [address]. tel:[phone] [place] [address] [place], [place] [address] [address], [place], [id number], [place] tel:[phone] [place] No Information Apr-1 0-202 3 Joe Vega. . Referring Provider: Ajay Sykes, [address] [place] [address], [address]. tel:[phone] [place] [address] [place] [address], [id number], [place] tel:[phone] [place] No Information Apr-0 7- 3 Nick Campbell. [address] [place] [address], [address], [place], [facility], [place]. tel:[phone] Referring Provider: Ajay Sykes, [address] [place] [address], [address]. tel:[phone] [place] [address] [place] [address], [place], [id number], [place] tel:[phone] [place] No Information Apr-0 5-202 3 Nick Campbell. [address] [place] [address], [address], [place], [address], [place]. tel:[phone] Referring Provider: Ajay Sykes [address] [place] [address], [address]. tel:[phone] [place] [address], [address] [place], [place] [address]u[address] [address], [place], [id number], [place] tel:[phone] [place] No Information Mar-1 0-202 3 Nick Campbell. [address] [place] [address], [address], [place], [address], [place]. tel:[phone] Referring Provider: Ajay Sykes, [address], [place], [address]. tel:[phone], [place], [place], [id number], tel:[phone] [place] No Information Mar-0 8 3 Nick Campbell. [address] [place] [address], [address], [place], [facility], . tel:[phone] Referring Provider: Ajay Sykes, [address], [place], [address]. tel:[phone] [place] [address] [address], [place], [id number], tel:[phone] [place] No Information Mar-0 3- 3 Nick Campbell. [address] [place] [address], [address], [place], [facility], . tel:[phone] Referring Provider: Ajay Sykes [address] [facility] [place], [address]. tel:[phone] [facility] [address], [place], [id number], tel:[phone] [place] No Information b-2 3 Nick Campbell. [address] [place] [address], [address], [place], [facility], . tel:[phone] Referring Provider: Ajay Sykes [address] [facility] [place], [address]. tel:[phone] [facility], [facility] [address], [place], [id number], [place] tel:[phone] [place] No Information Sep-2 3 Nick Campbell. [address] [place] [address], [address], [place], [facility], . tel:[phone] Referring Provider: Ajay Sykes [address] [facility] [place], [address]. tel:[phone] [facility], [address], [place], [id number], [place] tel:[phone] [place] No Information b2 3 Nick Campbell. [address] [place] [address], [address], [place], [facility], . tel:[phone] Referring Provider: Ajay Sykes, [address] [place], [address]. tel:[phone] [facility] [address], [place], [id number], [place] tel:[phone] [place] No Information b1 3 Nick Campbell. [address] [place] [address], [address], [place], [facility], . tel:[phone] Referring Provider: Ajay Sykes, [address] [place], [address]. tel:[phone] [place] [address] [address], [place], [place], [id number], [place] tel:[phone] [place] No Information b1 3 Nick Campbell. [address] [place] [address], [address], [place], [facility], [place]. tel:[phone] Referring Provider: Ajay Sykes, [address] [place], [address]. tel:[phone] [place] [address] [address], [place], [id number], [place] tel:[phone] [place] No Information b-0 3 Nick Campbell. [address] [place] [address], [address], [place], [address], [place]. tel:[phone] Referring Provider: Ajay Sykes [address] [place], [address]. tel:[phone] [facility], [address], [place], [id number], [place] tel:[phone] [place] No Information b-0 3 Nick Campbell. [address] [place] [address], [address], [place], [address], [place]. tel:[phone] Referring Provider: Ajay Sykes, [address] [facility] [place], [address]. tel:[phone] [address], [place], [id number], tel:[phone] [place] No Information [address] [facility] ([place], [place]), [address], [place], [address], [place]. tel:[phone] Referring Provider: Ajay Sykes, [address] [facility] [place], [address]. tel:[phone] [place], [place] [address]u[address] [place] [address], [id number], tel:[phone] [place] No Information 3 Nick Campbell. [address] [place] [address], [address], [place], [address], [place]. tel:[phone] Referring Provider: Ajay Sykes [address] [place], [address]. tel:[phone] [place] [address], [id number], [place] tel:[phone] [place] No Information 3 Nick Campbell. [address] [place] [address], [address], [place], [address], [place]. tel:[phone] Referring Provider: Ajay Sykes [address] [facility] [place], [address]. tel:[phone] [facility] [address] [place], [place] [address]u[address], [place], [id number], [place] tel:[phone] [facility] No Information 3 Nick Campbell. [address] [place] [address], [address], [place], [address], [place]. tel:[phone] Referring Provider: Ajay Sykes [address] [facility] [place], [address]. tel:[phone] [facility], [place], [place], [address], [place] tel:[phone] [place] No Information 3 Nick Campbell. [address] [place] [address], [address], [place], [facility], . tel:[phone] Referring Provider: Ajay Sykes, [address] [place], [address]. tel:[phone] [place] [address] [address], [place], [place], [address], [place] tel:[phone] [place] No Information 3 Nick Campbell. [address] [place] [address], [address], [place], [facility], . tel:[phone] Referring Provider: Ajay Sykes [address] [place], [address]. tel:[phone] [place] [address] [address], [place], [place], [address], [place] tel:[phone] [place] No Information 3 Nick Campbell. [address] [place] [address], [address], [place], [facility], [place]. tel:[phone] Referring Provider: Ajay Sykes [address] [place], [address]. tel:[phone] [place] [address] [address], [place], [address], [place] tel:[phone] [place] No Information 3 Nick Campbell. [address] [place] [address], [address], [place], [address], [place]. tel:[phone] Referring Provider: Ajay Sykse [address] [place], [address]. tel:[phone] [facility], [place], [place], [address], [place] tel:[phone] [place] No Information [address] [facility] ([place], [place]), [address], [place], [address], [place]. tel:[phone] Referring Provider: Ajay Sykes, [address] [place], [address]. tel:[phone] [facility], [address] [place], [place] [address]u[address], [place], [address], [place] tel:[phone] [place] No Information [address] [facility] ([place], [place]), [address], [place], [address], [place]. tel:[phone] Referring Provider: Ajay Sykes [address] [place], [address]. tel:[phone] [place] [address], [address] [place], [place] [address]uite [address], [place], [address], [place] tel:[phone] [place] No Information [address] [facility] ([place], [place]), [address], [place], [address], [place]. tel:[phone] Referring Provider: Ajay Sykes [address] [place], [address]. tel:[phone] [facility] [address] [place], [place] [address]uite [address], [place], [address], [place] tel:[phone] [place] No Information [address] [facility] ([place], [place]), [address], [place], [address], [place]. tel:[phone] Referring Provider: Ajay Sykes [address] [facility] [place], [address]. tel:[phone] [facility] [address] [place], [place] [address]e [address], [place], [address], [place] tel:[phone] [place] No Information [address] [facility] ([place], [place]), [address], [place], [address], [place]. tel:[phone] Referring Provider: Ajay Sykes 509 [facility] [place], [address]. tel:[phone] [place], [place] [address] [address], [place], [place], [address], [place] tel:[phone] [place] No Information 2 Dockins-Roberts Joycelyn. . Referring Provider: Ajay Sykes, [address] [place], [address]. tel:[phone] [place] [address] [address] [facility], [place], [place], [address], [place] tel:[phone] [place] No Information 2 Dockins-Roberts Joycelyn. . Referring Provider: Ajay Sykes, [address] [place], [address]. tel:[phone] [place], [place] [id number] [facility], [place], [address], [place] tel:[phone] [place] No Information 2 Dockins-Roberts Joycelyn. . Referring Provider: Ajay Sykes, [address] [place], [address]. tel:[phone] [place] [address] [place] [address], [place], [place], [address], [place] tel:[phone] [place] No Information 2 Dockins-Roberts Joycelyn. . Referring Provider: Ajay Sykes, [address] [place], [address]. tel:[phone] [place], [place] [id number] [facility], [place], [place], [address], [place] tel:[phone] [place] No Information 2 Dockins-Roberts Joycelyn. . Referring Provider: Ajay Sykes, [address] [place], [address]. tel:[phone] [place], [place] [address] [address], [place], [place], [address], [place] tel:[phone] [place] No Information 2 Dockins-Roberts Joycelyn. . Referring Provider: Ajay Sykes, 509 [facility], [place], [address]. tel:[phone] [facility]2[address] [facility], [place], [place], [address], [place] tel:[phone] [place] No Information 2 Dockins-Roberts Joycelyn. . Referring Provider: Ajay Sykes, 509 [facility], [place], [address]. tel:[phone] [place], [place] [address] [facility], [place], [place], [address], [place] tel:[phone] [place] No Information 2 Dockins-Roberts Joycelyn. . Referring Provider: Ajay Sykes, [address] [place], [address]. tel:[phone] [place] [address], [address] [place] [address], [place], [place], [address], [place] tel:[phone] [place] No Information 2 Dockins-Roberts Joycelyn. . Referring Provider: Ajay Sykes, [address] [place], [address]. tel:[phone] [facility] [place] [address], [place], [place], [address], [place] tel:[phone] [place] No Information 2 Dockins-Roberts Joycelyn. . Referring Provider: Ajay Sykes, [address] [place], [address]. tel:[phone] [facility] [facility], [place], [place], [address], [place] tel:[phone] [place] No Information [address] [facility] ([place], [place]), [address], [place], [address], [place]. tel:[phone] Referring Provider: Romel Mace, [address] [place], [address]. tel:[phone] [facility], [place], [place], [address], tel:[phone] [place] No Information 5-201 9 Stief Estella. [address] [place] [address], [address], [place], [place], [facility], . tel:[phone] Referring Provider: Romel Mace, [address] [place], [address]. tel:[phone] [place] [address]e [address], [place], [place], [address], tel:[phone] [place] No Information 1-201 9 Stief Estella. [address] [place] [address], [address], [place], [facility], [place]. tel:[phone] Referring Provider: Romel Mace, [address] [place], [address]. tel:[phone] [place], [place] [address]uite 300[place], [place], [address], tel:[phone] [place] No Information Jun-0 6-201 9 Niederhoffer Candice. . Referring Provider: Romel Mace, [address] [place], [address]. tel:[phone] [place], [place] [address]u[address], [place], [place], [address], tel:[phone] [place] No Information 0 201 9 Stief Estella. [address] [place] [address], [address], [place], [address], [place]. tel:[phone] Referring Provider: Romel Mace, [address] [place], [address]. tel:[phone] [place], [place] [address]u[address], [place], [place], [address], tel:[phone] [place] No Information 9-201 9 Stief Estella. [address] [place] [address], [address], [place], [address], [place]. tel:[phone] Referring Provider: Romel Mace, [address] [place], [address]. tel:[phone] [facility] [address] [place], [place] [address]u[address] [address], [place], [place], [address], [place] tel:[phone] [place] No Information 9 Geraldine Harvey. . Referring Provider: Romel Mace, 1515 [facility] [place], [address]. tel:[phone] [address], [place], [place], [address], [place] tel:[phone] [place] No Information 9 Stief Estella. [address] [place] [address], [facility] [address], [place], [address], [place]. tel:[phone] Referring Provider: Romel Mace, [address] [place], [address]. tel:[phone] [facility], [place], [place], [address], [place] tel:[phone] [place] No Information 9 Stief Estella. [address] [place] [address], [address], [place], [address], [place]. tel:[phone] Referring Provider: Romel Mace, [address] [place], [address]. tel:[phone], [id number], [place] tel:[phone] [place] No Information 9 Stief Estella. [address] [place] [address], [address], [place], [address], [place]. tel:[phone] Referring Provider: Meghna Page, [address] [facility] [address], [place], [address]. tel:[phone] [address], [place], [place], [address], [place] tel:[phone] [place] No Information 3 9 Stief Estella. [address] [place] [address], [address], [place], [facility], . tel:[phone] Referring Provider: Meghna Page, [address] [place] [address] [address], [place], [place], [facility]. tel:[phone] [place] [address], [place], [place], [address], tel:[phone] [place] No Information Sep-2 0-201 9 Stief Estella. [address] [place] [address], [address], [place], [facility], . tel:[phone] Referring Provider: Meghna Page, [address] [place] [address] 100, [place], [facility]. tel:[phone] [place] [address], [place], [place], [address], tel:[phone] [place] No Information Sep-1 7-201 9 Geraldine Ly . Referring Provider: Meghna Page, [address] [place] [address] [address], [place], [facility]. tel:[phone] [place] [address], [place], [place], [address], tel:[phone] [place] No Information Sep-1 3-201 9 Stief Estella. [address] [place] [address], [address], [place], [facility], . tel:[phone] Referring Provider: Meghna Page, [address] [place] [address] [address], [place], [facility]. tel:[phone], [place], [address], [place] tel:[phone] [place] No Information Sep-0 9-201 9 Stief Estella. [address] [place] [address], [address], [place], [facility], . tel:[phone] Referring Provider: Meghna Page, [address] [place] [address] [address], [place], [facility]. tel:[phone] [place] [address] [address], [place], [place], [address], tel:[phone] [place] No Information 9 Isaak Cuevas. . Referring Provider: Meghna Page, [address] [place] [address] Suite [facility], [place], [place], [facility]. tel:[phone], [id number], tel:[phone] [place] No Information 9 Stief Estella. [address] [place] [address], [address], [place], [facility], . tel:[phone] Referring Provider: Meghna Page, [address] [place] [address] 100, [place], [facility]. tel:[phone], [id number], tel:[phone] [place] No Information 9 Stief Estella. [address] [place] [address], [address], [place], [facility], . tel:[phone] Referring Provider: Meghna Page, [address] [place] [address] [address], [place], [facility]. tel:[phone], [id number], tel:[phone] [place] No Information 9 Stief Estella. [address] [place] [address], [address], [place], [facility], . tel:[phone] Referring Provider: Meghna Page, [address] [place] [address] [address], [place], [facility]. tel:[phone], [id number], tel:[phone] [place] No Information 9 Stief Estella. [address] [place] [address], [address], [place], [facility], . tel:[phone] Referring Provider: Meghna Page, [address] [place] [address] [address], [place], [facility]. tel:[phone] [place] [address], [place], [place], [address], tel:[phone] [place] No Information 9 Stief Estella. [address] [place] [address], [address], [facility], . tel:[phone] Referring Provider: Meghna Page, [address] [place] [address] [address], [place], [facility]. tel:[phone], [address], tel:[phone] [place] No Information 9 Stief Estella. [address] [place] [address], [address], [facility], . tel:[phone] Referring Provider: Meghna Page, [address] [place] [address], [place], [facility]. tel:[phone], [id number], tel:[phone] [place] No Information 9 Isaak Cuevas. . Referring Provider: Meghna Pgae, [address] [place] [address], [place], [facility]. tel:[phone], [id number], tel:[phone] [place] No Information 9 Stief Estella. [address] [place] [address], [facility] [address] [address], . tel:[phone] Referring Provider: Meghna Page, [address] [place] [address] 100, [place], [facility]. tel:[phone], [address], tel:[phone] [place] No Information 9 Isaak Cuevas. . Referring Provider: Meghna Page, [address] [facility] [address], [place], [address]. tel:[phone], [place], [place], [address], [place] tel:[phone] [place] Pain in right hipLow back painSacrococcyge al disorders, not elsewhere classifiedWeakne 5201 8 Stief Estella. [address] [place] [address], [address], [place], [facility], . tel:[phone] Referring Provider: China Page, [address] [facility] [address], [place], [place], [facility]. tel:[phone] [address], [place], [place], [address], [place] tel:[phone] [place] Pain in right hipLow back painSacrococcyge al disorders, not elsewhere classifiedWeakne 8 Stief Estella. [address] [place] [address], [address], [place], [facility], [place]. tel:[phone] Referring Provider: China Page, [address] [facility] [address], [place], [address]. tel:[phone], [id number], [place] tel:[phone] [place] Pain in right hipLow back painSacrococcyge al disorders, not elsewhere classifiedWeakne [address] [facility] ([place], [place]), [address], [place], [facility], [place]. tel:[phone] Referring Provider: China Page, [address] [facility] [address], [place], [address]. tel:[phone] [address], [place], [place], [address], [place] tel:[phone] [place] Pain in right hipLow back painSacrococcyge al disorders, not elsewhere classifiedWeakne Dario- 7-[address] [facility] ([place], [place]), [address], [place], [facility], . tel:[phone] Referring Provider: China Page, [address], [place], [address]. tel:[phone] [address], [place], [place], [address], tel:[phone] [place] Pain in right hipLow back painSacrococcyge al disorders, not elsewhere classifiedWeakne Dario- 0-201 8 Stief Estella. [address] [place] [address], [address], [place], [facility], [place]. tel:[phone] Referring Provider: China Page, [address], [place], [facility]. tel:[phone] [address], [place], [place], [address], [place] tel:[phone] [place] Pain in right hipLow back painSacrococcyge al disorders, not elsewhere classifiedWeakne Dario- 8-201 8 Stief Estella. [address] [place] [address], [address], [place], [facility], [place]. tel:[phone] Referring Provider: China Page, [address], [place], [facility]. tel:[phone] [address], [place], [place], [address], [place] tel:[phone] [place] Pain in right hipLow back painSacrococcyge al disorders, not elsewhere classifiedWeakne Jan- 5-201 8 Stief Estella. [address] [place] [address], [address], [place], [facility], [place]. tel:[phone] Referring Provider: China Page, [address], [place], [address]. tel:[phone] [place] [address] [address], [place], [place], [address], [place] tel:[phone] [place] Pain in right hipLow back painSacrococcyge al disorders, not elsewhere classifiedWeakne Dario-1 2-201 8 Stief Estella. [address] [place] [address], [address], [place], [facility], . tel:[phone] Referring Provider: China Page, [address] [facility] [address], [place], [address]. tel:[phone], [place], [place], [address], [place] tel:[phone] [place] Pain in right hipLow back painSacrococcyge al disorders, not elsewhere classifiedWeakne Dario-0 6-201 8 Stief Estella. [address] [place] [address], [address], [place], [facility], [place]. tel:[phone] Referring Provider: China Page, [address], [place], [address]. tel:[phone] [facility] [address], [place], [place], [address], [place] tel:[phone] [place] Pain in right hipLow back painSacrococcyge al disorders, not elsewhere classifiedWeakne Dario-0 5-201 8 Stief Estella. [address] [place] [address], [address], [place], [facility], [place]. tel:[phone] Referring Provider: China Page, [address], [place], [address]. tel:[phone], [place], [place], [address], [place] tel:[phone] [place] Pain in right hipLow back painSacrococcyge al disorders, not elsewhere classifiedWeakne Dario-0 1-201 8 Stief Estella. [address] [place] [address], [address], [place], [facility], [place]. tel:[phone] Referring Provider: China Page, [address], [place], [address]. tel:[phone] [facility] [address], [place], [place], [address], [place] tel:[phone] [place] Pain in right hipLow back painSacrococcyge al disorders, not elsewhere classifiedWeakne ss 8 Niederhoffer Candice. . Referring Provider: China Page, [address], [place], [address]. tel:[phone] [facility] [address], [place], [place], [address], [place] tel:[phone] [place] Pain in right hipLow back painSacrococcyge al disorders, not elsewhere classifiedWeakne ss 8 Niederhoffer Candice. . Referring Provider: China Page, [address], [place], [address]. tel:[phone] [facility], [place], [place], [address], [place] tel:[phone] [place] Pain in right hipLow back painSacrococcyge al disorders, not elsewhere classifiedWeakne ss 8 Niederhoffer Candice. . Referring Provider: China Page, [address], [place], [address]. tel:[phone] [facility], [place], [place], [address], [place] tel:[phone] [place] Pain in right hipLow back painSacrococcyge al disorders, not elsewhere classifiedWeakne ss 8 Niederhoffer Candice. . Referring Provider: China Page, [address], [place], [address]. tel:[phone] [facility], [place], [place], [address], [place] tel:[phone] [place] Pain in right hipLow back painSacrococcyge al disorders, not elsewhere classifiedTommy 8 Geraldine Harvey. . Referring Provider: China Page, [address] [facility] [address], [place], [address]. tel:[phone] Family History Family Member Type Diagnosis Age At Onset No Information Payers Payer name Insurance type Covered democrat ID Himanshuradha mejia(s) [facility] [id number] Social History Type Description Quantity Date Captured Comments Sex Female Smoking Status No Information Chief Complaint And Reason For Visit No Information Reason For Referral Reason For Referral No Information History Of Present Illness Encounter Date Complaint History Of Prese nt Illness No Information Functional Status Date Functional Assessmen t No Information Instructions Date Instruction Additional Infor mation Dietary needs education Related to Overweight Dietary needs education Related to Overweight Dietary needs education Related to Overweight Prescribed activity/exercise edu cation Related to Overweight Dietary needs education Related to Overweight Prescribed activity/exercise edu cation Related to Overweight Prescribed activity/exercise edu cation Related to Overweight Prescribed activity/exercise edu cation Related to Overweight Assessments Type Assessment Date No Information Patient Care Teams Name Effective Dates (start - stop) Status Members No Information
--- OUTSIDE RECORDS SUMMARY | 2024-11-27 00:52 | XMS_ITS | Encounter Summary ---
Author Organization [facility] Address [address] [place] [address] Care Team Providers Care Bread Stacker Name Role Phone China Page MD Primary Care Provider [phone] Encounter Details Date Type Department Care Team (Late st Contact Info) Description 11/25/2024 Telephone [employer] Neurology [address] [place] [address] Vic Barraza MD [address] [place] [address] Social History Tobacco Use Types Packs/Day Years Used Date Smoking Tobacco: Never Smokeless Tobacco: Never Alcohol Use Standard Drinks/Week Comments Yes 0 (1 standard drink = 0.6 oz pur e alcohol) rarely Feeling Safe Answer Date Recorded Do you worry about feeling s afe and happy with the people in your life? 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 Name: Estrada Pierson Reference: [id number] EXP 08/06/2025 documented in this encounter Plan of Treatment Upcoming Encounters Date Type Department Care Team (Late st Contact Info) Description 11/29/2024 9:30 AM CDT Procedure visit [facility] Neurology [address] [place] [address] Vic Barraza MD [address] [place] [address] 02/18/2025 8:30 AM CDT Office Visit [facility] Neurology [address] [place] [address] Vic Barraza MD [address] [place] [address] 02/21/2025 9:30 AM CDT Procedure visit [facility] Neurology [address] [place] [address] Vic Barraza MD [address] [place] [address] 05/13/2025 9:15 AM CDT Office Visit [facility] Pulmonology [facility] [address] [place] [address] Joe Pascal MD [address] [place] [address] 11/04/2025 9:00 AM CDT Office Visit [facility] [address] [address] [place] [address] [address] documented as of this encounter Visit Diagnoses Not on filedocumented in this encounter Care Teams Bread Stacker Relationship Specialty [place] [address] [address] PCP - General 10/04/12 documented as of this encounter
--- OUTSIDE RECORDS SUMMARY | 2024-11-27 00:52 | XMS_ITS | Encounter Summary ---
Author Organization [facility] Address 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 Gender Identity Not on file Sexual Orientation Not on file Occupation Industry Job Start Date Job End Date Not on file Not on file Not on file Not on file documented as of this encounter Plan of Treatment Upcoming Encounters Date Type Department Care Team (Late st Contact Info) Description 11/29/2024 9:30 AM CDT Procedure visit [facility] Neurology [address] [place] [address] Vic Barraza MD [address] [place] [address] 02/18/2025 8:30 AM CDT Office Visit [facility] Neurology [address] [place] [address] Vic Barraza MD [address] [place] [address] 02/21/2025 9:30 AM CDT Procedure visit [facility] Neurology [address] [place] [address] Vic Barraza MD [address] [place] [address] 05/13/2025 9:15 AM CDT Office Visit [facility] [place] Pulmon[facility] [address] [place] [address] Joe Pascal MD [address] [place] [address] 11/04/2025 9:00 AM CDT Office Visit [facility] [place] [facility] - [place] [id number] [place] [address] [place] [id number] [place] [address] documented as of this encounter Visit Diagnoses Not on filedocumented in this encounter Care Teams Cut In Station Operator Relationship Specialty Start Date End Date China Page MD [address] [place] [address] PCP - General 10/04/12 documented as of this encounter
--- OUTSIDE RECORDS SUMMARY | 2024-11-27 00:52 | XMS_ITS | Referral Summary ---
Author Organization [facility] [address] [place] [address] Care Team Providers Care Comptroller Name Role Phone China Page MD Primary Care Provider [phone] Encounters Date Type Department Care Team Description 11/22/2024 9:30 AM CDT Office Visit [facility] at [address] [address] Bhakti Gilbert CNM Encounter for well woman exam with routine gynecological exam (Primary Dx); Screening mammogram for breast cancer from Last 3 Months Allergies Active Allergy Reactions Criticality Noted Date [...] the skin every 4 (four) weeks 06/21/20 Active tretinoin (RETIN-A) 0.05 % cream Apply [...] ) phentermine (ADIPEX-P) 37.5 mg tablet 09/27/19 025 Disconti nued(Pat ient Reported ) rizatriptan ASSEMBLY MACHINE TENDER (MAXALT-ASSEMBLY MACHINE TENDER) 5 mg disintegrating tablet rizatriptan 5 mg [...] (50 mg total) by mouth daily 11/07/19 24 025 Disconti nued(Pat ient Reported ) butalbital-acetam inophen-caffeine (ESGIC) 50-325-40 mg per tablet TK 1 T PO EVERY 4 HOURS NEEDED FOR MIGRAINE. 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 Anal fissure 05/14/2009 Immunizations Immunization Administration Dates Next Due Influenza, Quadrivalent, Rec ombinant, Egg Free, Preservative Free, Intramuscular 05/11/2016 Influenza, Quadrivalent, Spl it, Intramuscular 05/09/2019,05/21/2015 Influenza, Quadrivalent, Spl it, Preservative Free, Intradermal 05/11/2016 Influenza, Quadrivalent, Spl it, Preservative Free, Intramuscular 04/17/2020,04/20/2018 Influenza, Trivalent, IM (MDV) 8,05/23/2017,05/07/2017,05/07 PPD TEST 12/27/2016 Pfizer SARS-CoV-2 Monovalent Vaccination (12+ Yrs) PURPLE 08/14/2020,07/24/2020 Social History Tobacco Use Types Packs/Day Years Used Date Smoking Tobacco: Never Smokeless Tobacco: Never Tobacco Cessation:Counseling Given: Not Answered Comments No Sex and Gender Information Value Date Recorded Sex Assigned at Not on file Legal Sex Female 8:29 AM CDT Gender Identity Not on file Sexual Orientation Not on file Last Filed Vital Signs Vital Sign Reading Time Taken Comments Blood Pressure 108/70 11/22/2024 9:19 AM CDT Pulse 92 10/07/2020 6:09 AM ESTIMATING ENGINEER Temperature 36.3 C (97.4 F) 08/04/2020 7:53 AM ESTIMATING ENGINEER Respiratory Rate - - Oxygen Saturation 100% 10/07/2020 6:09 AM ESTIMATING ENGINEER Inhaled Oxygen Concentration - - Weight 94.8 kg (208 lb 14.4 oz) 11/22/2024 9:19 AM CDT Height 167.6 cm (5' 5.98 ) 11/22/2024 9:19 AM CD T Body Mass Index 33.73 11/22/2024 9:19 AM CDT Plan of Treatment Not on file Procedures Procedure Name Priority Date/Time Associated Diagnosis Comments PAP AND HIGH RISK HPV, REFLEX TO GENOTYPING Routine 11/08/2021 2:23 PM CDT Routine gynecological examination from Last 3 Months or Most Recently Relevant to Health Maintenance Results * Pap and High Risk HPV, reflex to Genotyping (11/08/2021 2:23 PM CDT) Thin prep (Pap test) 11/08/2021 2:23 PM CDT 11/10/2021 11:09 AM CDT Narrative PATHOLOGY [facility] - 11/12/2021 9:52 AM CDT EPIC results best viewed via link to PDF [address] [address] Tele: Leatha Madrid MD - Agri Business Agent CYTOLOGY REPORT Note to Patients: This report [...] the details. Patient Name: TIFFANIE WINSLOW Address: [address] [place] [address]- Gender: F : 1980 (Age: 41) Service: Location: [facility] : [id number] [facility] #: [id number] Patient Type: [facility] SPECIMEN Taken: 11/08/2021 Reported: 11/12/2021 Physician(s): [place] Abbott M.D. FINAL DIAGNOSIS: Specimen Type: - ThinPrep Pap and HPV w/ reflex Genotyping Statement of Specimen Adequacy: Source: Cervical/Endocervical - Satisfactory for interpretation - Endocervical /Transformation Zone component present - Case screened using computer assisted imaging technology and manually re- screened by a salon shampoo assistant. General Categorization: - Negative for intraepithelial lesion or malignancy 11/12/2021 09:52 Batool Ladd M.S., BASHIR (ASCP) Report Reviewed and Electronically Signed By [...] recommended by your physician or nurse practitioner. us [place] Abbott MD LAB CYTOLOGY ORDERABLES F inal Result PATHOLOGY [facility] Laboratory Receiving [address] [place] [address] from Last 3 Months or Most Recently Relevant to Health Maintenance Insurance [facility] CHOICE PLUS [facility] FED[facility]AL [facility] [employer]AL Care Teams Comptroller Relationship Specialty [place] [address] [facility] [address] [place] [address] PCP - General Internal Medicine 02/20/19
--- OUTSIDE RECORDS SUMMARY | 2024-11-27 00:52 | XMS_ITS | Clinical Summary ---
Author Organization [facility] Address [address] [place] [address] Care Team Providers Care Hunting Guide Name Role Phone China Page MD Primary Care Provider [phone] Kushal Hernadez MD Unavailable [phone] Source Comments [facility],non-[facility] Affiliates and Associated Physician Practices is amultiple site organization consisting of ambulatory clinics and hospital sitesin [place], [place], [place] and [place]. This disclosure is being madepursuant to the Care Everywhere program and may not contain all information available regarding this patient. Last updated 18.[facility] Allergies Active Allergy Reactions Criticality Noted Date Comments Sulfa Drugs Rash,Unknown Medium 05/09/2010 Medications * Be aware that medications may not be up to date on this document. Alwaysverify current medications with the patient. levonorgestrel (MIRENA) 20 MCG/24HR IUD 1 (one) device by Intrauterine route as directed Active topiramate (TOPAMAX) 50 MG tablet Take 2 (two) tablets by mouth 2 times daily Active traZODone (DESYREL) 50 MG tablet Take 1 (one) tablet by mouth at bedtime Active albuterol HFA (PROVENTIL;SIXTO TOLIN;PROAIR) 108 (90 Base) MCG/ACT inhaler albuterol sulfate HFA 90 mcg/actuation aerosol inhaler Active scopolamine (TRANSDERM-SCO P) 1 MG patch Apply 1 (one) patch to skin as needed 1 Active Galcanezumab-g nlm (EMGALITY) 120 MG/ML auto-injector pen Inject 1 mL subcutaneously every 30 days 1 Active metoclopramide (Reglan) 5 MG tablet Take 2 (two) tablets by mouth 3 times daily before meals 540 tablet 3 2 Active famotidine (Pepcid) 20 MG tablet Take 2 (two) tablets by mouth at bedtime 180 tablet 3 3 Active hyoscyamine (Levsin SL) 0.125 MG sublingual tablet Dissolve 1 (one) tablet under the tongue every 4 hours as needed for Spasms 100 tablet 3 4 Active sucralfate (Carafate) 1 GM tablet Take 1 (one) tablet by mouth 4 times daily - before meals & nightly 120 tablet 4 Active Additional Information Patient taking differently:1 g OralPRN, Reported on 01/25/2024 tretinoin (Retin-A) 0.05 % cream Apply to affected area at bedtime 4 Active ketoconazole (Nizoral) 2 % cream APPLY TOPICALLY TO FACE RASH TWICE DAILY UNTIL GONE THEN NEEDED 4 Active hydroquinone (Lustra; Eldoquin) 4 % cream 4 Active clobetasol (Temovate) 0.05 % ointment Apply to affected area at bedtime 4 Active SPIRONOLACTONE PO Take 100 mg by mouth once daily Active ondansetron (Zofran) 4 MG tablet TAKE 1 TABLET BY MOUTH EVERY 6 HOURS NEEDED FOR NAUSEA / VOMITING Strength: 4 mg 50 tablet 3 4 Active omeprazole (PriLOSEC) 40 MG capsule TAKE 1 CAPSULE BY MOUTH TWICE DAILY BEFORE BREAKFAST AND SUPPER 180 capsule 3 4 Active hyoscyamine CR 12hr (Levbid) 0.375 MG tablet Take 1 (one) tablet by mouth every 12 hours 180 tablet 3 4 Active clindamycin (Cleocin) 1 % lotion Apply to affected area 2 times daily 4 Active hydrocortisone (Hytone) 2.5 % cream Apply to affected area as needed 4 Active fluticasone-vi lanterol (Breo Ellipta) 200-25 MCG/ACT inhaler Inhale 1 (one) puff by mouth once daily Active Active Problems Problem Noted Date Diagnosed Date Dyspepsia 07/06/2023 11/21/2023 Family history of colon cancer 07/06/2023 0 11/21/2023 Gastroesophageal reflux disease with esophagitis 07/06/2023 11/21/2023 Irritable bowel syndrome with diarrhea 3 11/21/2023 Gomes's esophagus 07/06/2023 Slow transit constipation 07/06/2023 Benign neoplasm of skin of left lower extremity 06/02/2022 Calcaneal spur 06/02/2022 Neuroma of foot 06/02/2022 Onychomycosis 06/02/2022 Plantar fasciitis 06/02/2022 Anxiety state 05/23/2012 Patellar tendinitis 05/23/2012 Absolute anemia 04/28/2011 Resolved Problems Problem Noted Date Diagnosed Date Resolved Date Anal fissure 05/14/2009 06/26/2024 Immunizations Immunization Administration Dates Next Due INFLUENZA VACCINE, TRIV. (AF LURIA, FLUZONE TRIVALENT; 6MO+) (IIV3) 05/07/2018,05/23/2017,05/07/2017,2012 [employer] primary monoval ent 12+ yr 0.3mL Purple cap 08/14/2020,07/24/2020 FLU VACCINE QUAD IIV4 PF ID 05/11/2016 FLU VACCINE QUAD IIV4 SPLIT 0.25 ML IM 05/21/2015 INFLUENZA VACCINE, QUADR. (F LUZONE; FLULAVAL; FLUARIX; AFLURIA QUADRIVALENT; 6MO+), 0.5 ML (IIV4) 04/17/2020 Family History Medical History Relation Name Comments Other Father IBS, diverticul itis Atrial Fibrillation Maternal Grandfather Cancer Maternal Grandfather skin High Blood Pressure Maternal Grandfather Alzheimer's Disease Maternal Grandmother Arthritis - Rheumatoid Mother Cancer Mother Extramammary Pa gets Lupus Mother Other Mother reflux and melodie roparesis Pulmonary Embolism Mother Sjogren's Syndrome Mother Crohn's Disease Other mat uncle COPD - Chronic Obstructive Pulmonary Disease Paternal Grandfather Cancer Paternal Grandfather unknown primary source, but maybe lung Cancer - Colon Paternal Grandfather Cancer - Liver Paternal Grandfather Cancer Paternal Grandmother colon Cancer - Colon Paternal Grandmother Other Sister 1 IBS (twin siste r-sees Dr. Hernadez) Migraine Sister 2 Relation Name Status Comments Father Alive Maternal Grandfather Alive Maternal Grandmother Mother Alive Other mat uncle Paternal Grandfather Paternal Grandmother Sister 1 Alive Sister 2 Social History Tobacco Use Types Packs/Day Years Used Date Smoking Tobacco: Never Smokeless Tobacco: Never Tobacco Cessation:Counseling Given: Not Answered Alcohol Use Standard Drinks/Week Comments Yes 0 (1 standard drink = 0.6 oz pur e alcohol) rarely AUDIT-C Answer Date Recorded Q1: How often do you have a drink containing alc ohol? Monthly or less 08/25/2020 Q2: How many drinks containi ng alcohol do you have on a typical day when you are drinking? 1 or 2 08/25/2020 Q3: How often do you have si x or more drinks on one occasion? Never 08/25/2020 Comments Unknown Sex and Gender Information Value Date Recorded Sex Assigned at Not on file Legal Sex Female 9:25 AM ONLINE ACTIVIST Gender Identity Not on file Sexual Orientation Not on file Last Filed Vital Signs Vital Sign Reading Time Taken Comments Blood Pressure 110/70 06/26/2024 1:47 PM ONLINE ACTIVIST Pulse 81 06/26/2024 1:47 PM ONLINE ACTIVIST Temperature 36.7 C (98 F) 06/26/2024 1:47 PM ONLINE ACTIVIST Respiratory Rate 16 11/29/2023 3:00 PM CDT Oxygen Saturation 99% 01/25/2024 10: 38 AM CDT Inhaled Oxygen Concentration 98% 07/13/2010 8 :23 AM ONLINE ACTIVIST Weight 97.4 kg (214 lb 12.8 oz) 06/26/2024 1:47 PM ONLINE ACTIVIST Height 167.6 cm (5' 6 ) 06/26/2024 1:47 PM ONLINE ACTIVIST Body Mass Index 34.67 06/26/2024 1:47 PM ONLINE ACTIVIST Plan of Treatment Upcoming Encounters Date Type Department Care Team (Late st Contact Info) Description 12/24/2024 9:00 AM CDT Office Visit [facility] Medical [facility] - GI [address], [address] [place] [address] Sarah Covarrubias, EMANATIONS ANALYSIS TECHNICIAN-DRYWALL METAL STUD WORKER [address] [place] [address] Health Maintenance Due Date Last Done Comments LIPID TESTING 1980 PAP SMEAR 1980 HIV SCREENING 1997 HEPATITIS C SCREENING 03/14/2000 DTAP/TDAP/TD VACCINES (1 - Tdap) 2001 HEPATITIS B VACCINE (1 of 3 - 19+ 3-dose series) 2001 SCREENING FOR DIABETES 08/25/2023 , 08/25/2020, 10/06/2015, Additional history exists COVID-19 VACCINE ( season) 2024 08/14/2020, 07/24/2020 DEPRESSION SCREENING 08/07/2024 INFLUENZA VACCINE (Season Ended) 2025 04/17/2020, 05/09/2019, 05/07/2018, Additional history exists MAMMOGRAM 11/16/2025 11/17/2023, 11/05, 06/27/2022, Additional history exists ZOSTER VACCINE (1 of 2) 2032 HIB VACCINE Aged Out No longer eligi ble based on patient's age to complete this topic HPV VACCINE Aged Out No longer eligi ble based on patient's age to complete this topic MENINGOCOCCAL (Group B) VACCINE SHARED DECISION-MAKING Aged Out No longer eligible based on patient's age to complete this topic MENINGOCOCCAL GROUPS A/C/Y/W VACCINE Aged Out No longer eligible based on patient's age to complete this topic PNEUMOCOCCAL VACCINE Aged Out No long er eligible based on patient's age to complete this topic Procedures Procedure Name Priority Date/Time Associated Diagnosis Comments MAMMO BILAT SCREENING W GIOVANNY Routine 06/27/2022 9:18 AM ONLINE ACTIVIST Visit for screening mammogram COMPREHENSIVE METABOLIC PANEL Routine 08/25/2020 10:07 AM ONLINE ACTIVIST Epigastric abdominal pain from Last 3 Months or Most Recently Relevant to Health Maintenance Results * MAMMO BILAT SCREENING W GIOVANNY (06/27/2022 9:18 AM ONLINE ACTIVIST) Anatomical Region Laterality Modality Breast Bilateral Mammography 06/27/2022 10:5 6 AM ONLINE ACTIVIST Impressions 06/27/2022 10:59 AM ONLINE ACTIVIST : Annual screening mammography is recommended. OVERALL FINAL ASSESSMENT: BI-RADS Category 1: Negative. > Interpreting Provider: Ramana Shin MD on 06/27/2022 10:59 AM Narrative 06/27/2022 10:59 AM ONLINE ACTIVIST EXAMINATION: BILATERAL DIGITAL SCREENING MAMMOGRAM AND BILATERAL BREAST TOMOSYNTHESIS HISTORY: Screening. COMPARISON: Baseline TECHNIQUE: BILATERAL digital breast tomosynthesis (DBT) and synthetic 2D digital mammogram images were obtained (bilateral craniocaudal and mediolateral oblique projections) including computer aided detection (CAD.) BREAST PARENCHYMAL COMPOSITION:Category C: The breasts are heterogeneously dense which may obscure small masses. MAMMOGRAM FINDINGS: There is no suspicious finding in either breast. us China Page MD MAMMO ORDERABLES Final Result * (ABNORMAL) COMPREHENSIVE METABOLIC PANEL (08/25/2020 10:07 AM ONLINE ACTIVIST) Glucose 106(H) 70 - 105 mg/dL [facility] ACCOUNT BILL BUN 13 7 - 18.7 mg/dL [facility] ACCOUNT BILL Creatinine 1.07 0.57 - 1.11 mg/dL [facility] ACCOUNT BILL eGFR by MDRD 57(L) >60 mL/min/1.7 3m2 [facility] ACCOUNT BILL eGFR by MDRD >60 >60 mL/min/1.7 3m2 [facility] ACCOUNT BILL Sodium 141 136 - 145 mmol/L [facility] ACCOUNT BILL Potassium 4.4 3.5 - 5.1 mmol/L [facility] ACCOUNT BILL Chloride 111(H) 98 - 107 mmol/L [facility] ACCOUNT BILL CO2 22(L) 23 - 31 mmol/L [facility] ACCOUNT BILL Calcium 9.0 8.4 - 10.4 mg/dL [facility] ACCOUNT BILL Protein Total 7.1 6.4 - 8.3 gm/dL [facility] ACCOUNT BILL Albumin 4.3 3.5 - 5.2 gm/dL [facility] ACCOUNT BILL Bilirubin Total 0.4 0.2 - 1.2 mg/dL [facility] ACCOUNT BILL Comment:Attention clinician: Reference Range change. Alkaline Phosphatase 69 40 - 150 U/L [facility] ACCOUNT BILL Comment:Attention clinician: Reference Range change. AST 14 5 - 34 U/L [facility] ACCOUNT BILL ALT 17 0 - 61 U/L [facility] ACCOUNT BILL Blood BLOOD SPECIMEN / Unknown 08/25/2020 10:07 AM ONLINE ACTIVIST 08/25/2020 Narrative Resulting Agency Comment Lab Testing performed at: [address] [place] [id number] Sarah Covarrubias EMANATIONS ANALYSIS TECHNICIAN-DRYWALL METAL STUD WORKER LAB - CHEMISTRY ORDERA BLES Final Result [facility] ACCOUNT BILL [address] [place] [address] from Last 3 Months or Most Recently Relevant to Health Maintenance Additional Health Concerns Infection Onset Date Last Indicated C DIFF 05/30/2010 05/30/2010 Insurance [facility] Address: [facility] [id number] [place] [address] [address] [place] [address] [place] [address] Care Teams Hunting Guide Relationship Specialty [place] [address] [facility] [address] [place] [address] PCP - General 09/16/11 Kushal Hernadez MD [address] [facility] [address] [place] [address] Ice Cream Dipper Gastroenterology 06/26/24
--- OUTSIDE RECORDS SUMMARY | 2024-11-27 00:52 | XMS_ITS | Encounter Summary ---
Author Organization [facility] Address [address] [place] [address] Care Team Providers Care Mold Closer Name Role Phone China Page MD Primary Care Provider [phone] Encounter Details Date Type Department Care Team (Latest Contact Info) Description 08/30/2024 Results Follow-Up [facility] Rheumatology [address] [place] [address] [place] [address] [place] [address] HLA B27, LYME ANTIBODY SCREEN W/REFLEX CONFIRMATION Social History Tobacco Use Types Packs/Day Years Used Date Smoking Tobacco: Never Smokeless Tobacco: Never Alcohol Use Standard Drinks/Week Comments Yes 0 (1 standard drink = 0.6 oz pur e alcohol) rarely Feeling Safe Answer Date Recorded Do you worry about feeling s afe and happy with the people in your life? 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 Gender Identity Not on file Sexual Orientation Not on file Occupation Industry Job Start Date Job End Date Not on file Not on file Not on file Not on file documented as of this encounter Plan of Treatment Upcoming Encounters Date Type Department Care Team (Late st Contact Info) Description 11/29/2024 9:30 AM CDT Procedure visit [facility] Neurology [address] [place] [address] Vic Barraza MD [address] [place] [address] 02/18/2025 8:30 AM CDT Office Visit [facility] Neurology [address] [place] [address] Vic Barraza MD [address] [place] [address] 02/21/2025 9:30 AM CDT Procedure visit [facility] Neurology [address] [place] [address] Vic Barraza MD [address] [place] [address] 05/13/2025 9:15 AM CDT Office Visit [facility] Pulmonology [facility] [address] [place] [address] Joe Pascal MD [address] [place] [address] 11/04/2025 9:00 AM CDT Office Visit [facility] Primary Care - [facility] [id number] [place] [address] China Page MD [address] [place] [address] documented as of this encounter Visit Diagnoses Not on filedocumented in this encounter Care Teams Mold Closer Relationship Specialty Start Date End Date China Page MD [address] [place] [address] PCP - General 10/04/12 documented as of this encounter
--- OUTSIDE RECORDS SUMMARY | 2024-11-27 00:52 | XMS_ITS | Encounter Summary ---
Author Organization [facility] Address [address] [place] [address] Care Team Providers Care Ship Rigger Apprentice Name Role Phone China Page MD Primary Care Provider [phone] Encounter Details Date Type Department Care Team (Late Contact Info) Description 04/04/2016 Lab Requisition [facility] General Laboratory Services [address] [address] Elroy Whitman MD NO ADDRESS ON FILE Social History Tobacco Use Types Packs/Day Years Used Date Smoking Tobacco: Never Smokeless Tobacco: Never Alcohol Use Standard Drinks/Week Comments Yes 0 (1 standard drink = 0.6 oz pur e alcohol) rarely Comments No Sex and Gender Information Value Date Recorded Sex Assigned at Not on file Legal Sex Female 7:22 PM [employer] Gender Identity Not on file Sexual Orientation Not on file Occupation Industry Job Start Date Job End Date Not on file Not on file Not on file Not on file documented as of this encounter Plan of Treatment Upcoming Encounters Date Type Department Care Team (Late Contact Info) Description 11/29/2024 9:30 AM CDT Procedure visit [facility] Neurology [id number] [place] [address] Vic Barraza MD [address] [place] [address] 02/18/2025 8:30 AM CDT Office Visit [facility] Neurology [id number] [place] [address] Vic Barraza MD [address] [place] [address] 02/21/2025 9:30 AM CDT Procedure visit [facility] Neurology [id number] [place] [address] Vic Barraza MD [address] [place] [address] 05/13/2025 9:15 AM CDT Office Visit [facility] Pulmonology [facility] [address] [place] [address] Joe Pascal MD [address] [place] [address] 11/04/2025 9:00 AM CDT Office Visit [facility] Primary Care - [facility] [address] [address] [place] [phone] [address] documented as of this encounter Procedures Procedure Name Priority Date/Time Associated Diagnosis Comments HEPATITIS C ANTIBODY Routine 04/04/2016 8:33 AM CDT ALT Routine 04/04/2016 8:33 AM CDT documented in this encounter Results * HEPATITIS C ANTIBODY (04/04/2016 8:33 AM CDT) HEPATITIS C AB NON-REACTI VE Non-reacti ve 04/04/2016 12:[address] [facility] Blood Collection / Unknown 04/04/2016 8:33 AM CDT 04/04/2016 12:08 PM CDT Elroy Whitman MD CHEMISTRY ORDERABLES Final Re sult [facility] [employer] [facility] CLIA # [id number] y [address] [place] [address] * ALT (04/04/2016 8:33 AM CDT) ALT 15 <=33 U/L 04/04/2016 12:[address] [facility] [employer] [facility] Blood Collection / Unknown 04/04/2016 8:33 AM CDT 04/04/2016 12:08 PM CDT Elroy Whitman MD CHEMISTRY ORDERABLES Final Re sult Performing Organization Address City/[facility]/ZIP Co de Phone Number [facility] [employer] [facility] CLIA # [id number] [facility] [address] [place] [address] documented in this encounter Visit Diagnoses Not on filedocumented in this encounter Care Teams Ship Rigger Apprentice Relationship Specialty [place] [phone] [address] PCP - General 10/04/12 documented as of this encounter
--- OUTSIDE RECORDS SUMMARY | 2024-11-27 00:52 | XMS_ITS | Clinical Summary ---
Author Organization [facility] Address [address] [place] [address] Care Team Providers Care Substation Technician Name Role Phone China Page MD Primary Care Provider [phone] Allergies Active Allergy Reactions Criticality Noted Date Comments Sulfa (Sulfonamide Antibiotics) Unknown 11/06 Medications levonorgestreL (MIRENA) 20 mcg/24 hours (7 yrs) 52 mg IUD Activ e metoclopramide HCl (REGLAN) 5 mg tablet Take 5 mg by mouth 2 times daily. 11/20/19 21 Active famotidine (PEPCID) 20 mg tablet Take 20 mg by mouth. Active ondansetron (ZOFRAN) 4 mg Tablet Take 4 mg by mouth daily in the morning. Active omeprazole (PriLOSEC) 40 mg Capsule, Delayed Release(E.C.) TAKE 1 CAPSULE BY MOUTH TWICE DAILY BEFORE BREAKFAST AND SUPPER 10/22/19 22 Active hyoscyamine 0.125 mg sublingual tablet DISSOLVE 1 TABLET UNDER THE TONGUE EVERY 4 HOURS NEEDED FOR SPASMS 12/22/19 23 Active butalbital-acet aminophen-caffe ine (FIORICET) 50-325-40 mg tabletIndicatio ns:Chronic migraine without aura without status migrainosus, not intractable Take 1 Tablet by mouth 1 time daily as needed for Migraine. 4 Tablet 5 07/06/20 23 Active albuterol sulfate HFA 90 mcg/actuation aerosol inhalerIndicati ons:Acute cough Take 2 Puffs by inhalation every 6 hours as needed for Shortness of Breath. 8.5 Gram 08/04/20 Active inhalational spacing device (Microchamber) SpacerIndicatio ns:Acute cough Use with inhaler 1 Each 08/04/20 23 Active sucralfate (CARAFATE) 1 gram tablet Take 1 Gram by mouth. 09/20/19 24 Active traZODone (DESYREL) 50 mg tablet Take 1 Tablet (50 mg) by mouth daily at bedtime. 100 Tablet 3 10/23/19 24 Active SPIRONOLACTONE ORAL Take 100 mg by mouth daily. Active galcanezumab-gn lm (Emgality Pen) 120 mg/mL Pen Injector Inject 1 mL by subcutaneous injection every 30 days. 1 mL 11 12/28/19 24 Active fluticasone furoate-vilante roL (BREO ELLIPTA) 200-25 mcg/dose Disk with Device Take 1 Puff by inhalation daily. 1 Each 11 05/07/20 24 Active topiramate (TOPAMAX) 100 mg tabletIndicatio ns:Chronic migraine without aura without status migrainosus, not intractable TAKE 1 TABLET(100 MG) BY MOUTH TWICE DAILY 180 Tablet 3 06/07/20 24 Active atovaquone-prog uaniL (MALARONE) 250-100 mg TabletIndicatio ns:Travel advice encounter Take 1 Tablet by mouth daily. 32 Tablet 07/01/20 24 Active scopolamine (Transderm-Scop ) 1 mg/72 hr patchIndication s:Travel advice encounter,H/O motion sickness Apply 1 Patch to skin as directed see administration instructions. Apply 1 patch behind your ear once every three days 20 Patch 07/01/20 Active ketoconazole (NIZORAL) 2 % Cream APPLY TOPICALLY TO FACE RASH TWICE DAILY UNTIL GONE THEN NEEDED Active tretinoin (RETIN-A) 0.05 % Cream Apply to affected area. 11/09/19 24 Active ciprofloxacin-d exAMETHasone (CIPRODEX) 0.3-0.1 % Drops, Suspension Administer 4 Drops in both ears 2 times daily. 7.5 mL 3 10/30/19 Active amoxicillin-cla vulanate (AUGMENTIN) 875-125 mg tablet Take 1 Tablet by mouth 2 times daily. 11/02/19 Active Active Problems Problem Noted Date Diagnosed Date Gomes's esophagus 07/06/2023 Dyspepsia 07/06/2023 Family history of colon cancer 07/06/2023 Gastroesophageal reflux disease with esophagitis 07/06/2023 Slow transit constipation 07/06/2023 Irritable bowel syndrome with diarrhea Ingrowing nail 07/06/2023 Benign neoplasm of skin of left lower extremity 06/02/2022 Calcaneal spur 06/02/2022 Plantar fasciitis 06/02/2022 Onychomycosis 06/02/2022 Neuroma of foot 06/02/2022 Pain in right foot 02/15/2022 Impingement syndrome of right shoulder region Pain in joint of right shoulder 10/10/2021 Anxiety state 05/23/2012 Patellar tendinitis 05/23/2012 Other specified iron deficiency anemias 04/28/20 11 Absolute anemia 04/28/2011 Anal fissure 05/14/2009 Encounters Date Type Department Care Team Description 11/25/2024 Telephone [facility] Neurology [address] [facility] [address] [place] [address] Vic Barraza MD 11/12/[address] [address] China Page MD 11/04/2024 9:30 AM CDT Office Visit [facility] Jorge Alberto Bourgeois [address] [facility] [address] [place] [phone] Sergei Kelly MD Inflammatory arthritis (Primary Dx) 10/31/2024 Results Follow-Up [address] [address] China Page MD TSH REFLEXIVE, COMPREHENSIVE METABOLIC PANEL, LIPID PANEL, Additional followed-up results: 2 10/29/2024 9:00 AM CDT Office Visit [address] [address] China Page MD Encounter for preventative adult health care examination (Primary Dx); Declined influenza vaccine 10/23/2024 External Device Data [facility] ABSTRACTION Provider, Abstract 10/15/2024 External Device Data [facility]STRA[facility] Provider, Abstract 10/15/2024 External Device Data [facility]STRACTION Provider, Abstract 10/12/2024 External Device Data [facility] Provider, Abstract 10/11/2024 External Device Data [facility] ABSTRACTION Provider, Abstract 10/08/2024 External Device Data [facility] ABSTRACTION Provider, Abstract 09/24/2024 External Device Data [facility]STRACTION Provider, Abstract 09/17/2024 External Device Data [facility] ABSTRACTION Provider, Abstract 09/06/2024 9:00 AM STEPDOWN NURSE Procedure visit [facility] Neurology [facility] [address] [facility] [address] [place] [phone] Vic Barraza MD Chronic migraine without aura without status migrainosus, not intractable (Primary Dx) 08/30/2024 Results Follow-Up [facility] Rheumatology [facility] [address] [facility] [address] [place] [address] Sergei Kelly MD HLA B27, LYME ANTIBODY SCREEN W/REFLEX CONFIRMATION 08/29/2024 Abstract [facility] NEUROLOGY - [facility] - [address] [facility] [address] [place] [address] Glenda Boyd from Last 3 Months Immunizations Immunization Administration Dates Next Due ([employer])(12 YR UP) COVID-19 VACCINE - EMERGENCY USE AUTHORIZATION, MRNA, [id number](PF) 30 MCG/0.3 ML IM SUSP 08/14/2020,07/24/2020 INFLUENZA VACCINE QUADRIVALE NT 6 MOS UP IM 05/09/2019,05/21/2015,05/21/2015 INFLUENZA VACCINE QUADRIVALE NT 6 MOS UP PF IM 04/17/2020,04/20/2018 INFLUENZA VACCINE QUADRIVALE NT RECOMB 18 YR UP PF IM 05/11/2016 Influenza Seasonal Unspecifi ed Formulation IM 05/07/2018,05/07/2018,05/23/2017,2016,05/07/2017,05/07/2013,05/07/2013 Influenza Vaccine Quad Split (18-64) Pf Id 05/11/2016,05/11/2016 Influenza Vaccine Quad Split 3+ Yrs Im 05/21/2015 Skin Test TB 12/27/2016 Family History Medical History Relation Name Comments Other Father Marcin Diverticulitis, IBS Cancer Maternal Grandfather Samuel Skin CA - face Cancer - Other Maternal Grandfather Samuel Skin High Cholesterol Maternal Grandfather Samuel Hypertension Maternal Grandfather Samuel Other Maternal Grandfather Samuel Afib Alzheimer's Disease Maternal Grandmother Natalie due to Alzheimer's Clotting Disorder Maternal Grandmother Natalie Hx DVT Migraines Maternal Grandmother Natalie Arthritis-rheumatoid Mother April Cancer Mother April Paget's of vulv a and anus Cancer - Other Mother April Extramammary Paget's Clotting Disorder Mother April Hx DVT/mul t PE. Unk etiology Kidney Disease Mother April Stage 3 CKD ( fpc NSAID use) Migraines Mother April Other Mother April Rheumatoid Arth ritis, Sjogren's, Lupus, Gastroparesis SLE Mother April Cancer Paternal Grandfather AJ Lung wi th mets Cancer - Other Paternal Grandfather AJ Metas tatic (Colon/Liver?) Emphysema Paternal Grandfather AJ Cancer Paternal Grandmother Lauren Colon Cancer - Other Paternal Grandmother Lauren Colon Cancer Colon Cancer Paternal Grandmother Lauren Migraines Sister 1 Alma Migraines Sister 2 Alma Relation Name Status Comments Father Marcin Alive Maternal Grandfather Samuel Alive Maternal Grandmother Natalie Alive Mother April Alive Paternal Grandfather AJ Alive Paternal Grandmother Lauren Alive Sister 1 Alma Alive Sister 2 Alma Alive Social History Tobacco Use Types Packs/Day Years [...] on file Legal Sex Female 7:22 PM STEPDOWN NURSE Gender Identity Not on file Sexual Orientation Not on file Occupation Industry Job Start Date Job End Date Not on file Not on file Not on file Not on file Last Filed Vital Signs Vital Sign Reading Time Taken Comments Blood Pressure 120/73 11/04/2024 9:06 AM CDT Pulse 87 11/04/2024 9:06 AM CDT Temperature 36.6 C (97.9 F) 11/04/2024 9:06 AM CDT Respiratory Rate 18 10/29/2024 8:49 AM CDT Oxygen Saturation 99% 11/04/2024 9:06 AM CDT Inhaled Oxygen Concentration - - Weight 94.8 kg (209 lb) 11/04/2024 9:06 AM CDT Height 167.6 cm (5' 6 ) 11/04/2024 9:06 AM CDT Body Mass Index 33.73 11/04/2024 9:06 AM CDT Plan of Treatment Upcoming Encounters Date Type Department Care Team (Late st Contact Info) Description 11/29/2024 9:30 AM CDT Procedure visit [facility] Neurology [address] [place] [address] Vic Barraza MD [address] [place] [address] 02/18/2025 8:30 AM CDT Office Visit [facility] Neurology [address] [place] [address] Vic Barraza MD [address] [place] [address] 02/21/2025 9:30 AM CDT Procedure visit [facility] Neurology [address] [place] [address] Vic Barraza MD [address] [place] [address] 05/13/2025 9:15 AM CDT Office Visit [facility] Pulmonology [facility] [address] [place] [address] Joe Pascal MD [address] [place] [address] 11/04/2025 9:00 AM CDT Office Visit [facility] Primary Care - [facility] [address] [address] [place] [id number] [address] Health Maintenance Due Date Last Done Comments DTAP/TDAP/TD VACCINES (1 - Tdap) 2001 HEPATITIS B VACCINES (1 of 3 - 19+ 3-dose series) 2001 HPV/Cotest (21-29) 2003 HPV/Cotest (30-65) 2012 COVID-19 Vaccine (2023- season) 2024 06/30/2021, 08/14/2020, 07/24/2020 CERVICAL CANCER SCREENING 11/08/2024 PAP SMEAR 11/08/2024 11/08/2021 BREAST CANCER SCREENING 11/16/2024 11/17/19, 06/27/2022, 06/27/2022, Additional history exists Pre-Diabetes and Diabetes Screening 10/30/2027 10/29/2024, 10/23/2023 INFLUENZA VACCINE Completed 10/29/2024, , 05/09/2019, Additional history exists Preventative Visit- Commercial Completed 10/29/2024, 11/14/2023, 10/23/2023, Additional history exists HPV VACCINES Aged Out No longer eligi ble based on patient's age to complete this topic Procedures Procedure Name Priority Date/Time Associated Diagnosis Comments HEMOGLOBIN A1C Routine 10/29/2024 9:43 AM CDT Encounter for preventative adult health care examination CBC WITH DIFFERENTIAL Routine 10/29/2024 9:43 AM CDT Encounter for preventative adult health care examination LIPID PANEL Routine 10/29/2024 9:43 AM CDT Encounter for preventative adult health care examination COMPREHENSIVE METABOLIC PANEL Routine 10/29/2024 9:43 AM CDT Encounter for preventative adult health care examination TSH REFLEXIVE Routine 10/29/2024 9:43 AM CDT Encounter for preventative adult health care examination MAMMO 3D GIOVANNY SCREEN BILAT W OR WO CAD Routine 11/17/2023 9:02 AM CDT Encounter for routine adult health examination without abnormal findings from Last 3 Months or Most Recently Relevant to Health Maintenance Results * TSH REFLEXIVE (10/29/2024 9:43 AM CDT) TSH 1.17 mIU/L [facility] Comment: Reference Range > or = 20 Years 0.40-4.50 Ranges First trimester 0.26-2.66 Second trimester 0.55-2.73 Third trimester 0.43-2.91 FASTING:YES FASTING: YES Test Performed at: [place] [address] [place] [address] Isabel Kaplan Blood 10/29/2024 9:43 AM CDT 10/29/2024 9:51 AM CDT us China Page MD CHEMISTRY ORDERABLES Final Resul t [facility] [phone] [facility] [place] [address] [place] [address] * CBC WITH DIFFERENTIAL (10/29/2024 9:43 AM CDT) WBC 5.3 3.8 - 10.8 Thousand/u L [facility] RBC 4.38 3.80 - 5.10 Million/uL [facility] HEMOGLOBIN 13.0 11.7 - 15.5 g/dL [facility] HEMATOCRIT 40.3 35.0 - 45.0 % [facility] MCV 92.0 80.0 - 100.0 fL [facility] Jose F MCH 29.7 27.0 - 33.0 pg [facility] Jose F MCHC 32.3 32.0 - 36.0 g/dL [facility] Comment: For adults, a slight decrease in the calculated MCHC value (in the range of 30 to 32 g/dL) is most likely not clinically significant; however, it should be interpreted with caution in correlation with other red cell parameters and the patient's clinical condition. RDW 12.7 11.0 - 15.0 % [facility] PLATELETS 346 140 - 400 Thousand/u L [facility] MPV 10.1 7.5 - 12.5 fL [facility] NEUTROPHIL ABSOLUTE 3,132 1,500 - 7,800 cells/uL [facility] Jose F LYMPHOCYTE ABSOLUTE 1,670 850 - 3,900 cells/uL [facility] Jose F MONOCYTE ABSOLUTE 371 200 - 950 cells/uL [facility] EOSINOPHIL ABSOLUTE 80 15 - 500 cells/uL [facility] BASOPHILS ABSOLUTE 48 0 - 200 cells/uL [facility] NEUTROPHIL 59.1 % [facility] LYMPHOCYTES 31.5 % [facility] MONOCYTE 7.0 % [facility] EOSINOPHILS 1.5 % [facility] BASOPHILS 0.9 % [facility] Comment: FASTING:YES FASTING: YES Test Performed at: [facility] [address] [address] [id number] [facility] Blood 10/29/2024 9:43 AM CDT 10/29/2024 9:51 AM CDT us China Page MD HEMATOLOGY ORDERABLES Final Resu lt [facility] [phone] [facility] [place] [address] [address] [id number] * HEMOGLOBIN A1C (10/29/2024 9:43 AM CDT) HEMOGLOBIN A1C 5.1 <5.7 % of total Hgb [facility] Comment: For the purpose of screening for the presence of diabetes: <5.7% Consistent with the absence of diabetes 5.7-6.4% Consistent with increased risk for diabetes (prediabetes) > or =6.5% Consistent with diabetes This assay result is consistent with a decreased risk of diabetes. Currently, no consensus exists regarding use of hemoglobin A1c for diagnosis of diabetes in children. According to [place] Diabetes Association (ADA) guidelines, hemoglobin A1c <7.0% represents optimal control in non- diabetic patients. Different metrics may apply to specific patient populations. Standards of Medical Care in Diabetes(ADA). ESTIMATED AVERAGE GLUCOSE (MG/DL) 100 mg/dL [facility] ESTIMATED AVERAGE GLUCOSE (MMOL/L) 5.5 mmol/L [facility] Comment: FASTING:YES FASTING: YES Test Performed at: [facility] [address] [address] [id number] [facility]lenyL[facility] Cason Eusebio Blood 10/29/2024 9:43 AM CDT 10/29/2024 9:51 AM CDT us China Page MD CHEMISTRY ORDERABLES Final Resul t [facility] [phone] [facility] [place] [address] [address] [id number] * (ABNORMAL) LIPID PANEL (10/29/2024 9:43 AM CDT) CHOLESTEROL 170 <200 mg/dL [facility] HDL 44(L) > OR = 50 mg/dL [facility] TRIGLYCERIDE 72 <150 mg/dL [facility] LDL CALCULATED 110(H) mg/dL (calc) [facility] Comment: Reference range: <100 Desirable range <100 mg/dL for primary prevention; <70 mg/dL for patients with CHD or diabetic patients with > or = 2 CHD risk factors. LDL-C is now calculated using the Minoo calculation, which is a validated novel method providing better accuracy than the Friedewald equation in the estimation of LDL-C. Harpal GOODEN et al. LIUDMILA. 2013;310(19): 9488-5197 (http://education.Weeleo.VANCL/faq/WYT516) CHOL/HDL RATIO 3.9 <5.0 (calc) [facility] NON-HDL CHOLESTEROL 126 <130 mg/dL (calc) [facility] srinivas Kohler Comment: For patients with diabetes plus 1 major ASCVD risk factor, treating to a non-HDL-C goal of <100 mg/dL (LDL-C of <70 mg/dL) is considered a therapeutic option. Test Performed at: [facility] [address] [address] [id number] Isabel Kaplan Blood 10/29/2024 9:43 AM CDT 10/29/2024 9:51 AM CDT us China Page MD CHEMISTRY ORDERABLES Final Resul t [facility] [phone] [facility] [place] [address] [address] [phone] * COMPREHENSIVE METABOLIC PANEL (10/29/2024 9:43 AM CDT) GLUCOSE 92 65 - 99 mg/dL [facility] Jose F Comment: Fasting reference interval BUN 16 7 - 25 mg/dL [facility] CREATININE 0.97 0.50 - 0.99 mg/dL [facility] Jose F GFR 75 > OR = 60 mL/min/1. 73m2 [facility] BUN/CREAT RATIO SEE NOTE: 6 - 22 (calc) [facility] Jose F Comment: Not Reported: BUN and Creatinine are within reference range. SODIUM 137 135 - 146 mmol/L [facility] Jose F POTASSIUM 4.2 3.5 - 5.3 mmol/L [facility] Jose F CHLORIDE 107 98 - 110 mmol/L [facility] Jose F CO2 22 20 - 32 mmol/L [facility] Jose F CALCIUM 9.0 8.6 - 10.2 mg/dL [facility] Jose F TOTAL PROTEIN 6.8 6.1 - 8.1 g/dL [facility] Jose F ALBUMIN 4.2 3.6 - 5.1 g/dL [facility] Jose F GLOBULIN 2.6 1.9 - 3.7 g/dL (calc) [facility] Jose F ALBUMIN/GLOBULIN RATIO 1.6 1.0 - 2.5 (calc) [facility] Jose F BILIRUBIN TOTAL 0.6 0.2 - 1.2 mg/dL [facility] Jose F ALKALINE PHOSPHATASE 70 31 - 125 U/L [facility] Jos Ef AST 13 10 - 30 U/L [facility] ALT 13 6 - 29 U/L [facility] Comment: FASTING:YES FASTING: YES Test Performed at: [facility] [address] [id number] Isabel Kaplan Blood 10/29/2024 9:43 AM CDT 10/29/2024 9:51 AM CDT us China Page MD CHEMISTRY ORDERABLES Final Resul t [facility] [phone] [facility] [address] [phone] * MAMMO 3D GIOVANNY SCREEN BILAT W OR WO CAD (11/17/2023 9:02 AM CDT) Anatomical Region Laterality Modality Breast Bilateral Mammography 11/17/2023 9:03 AM CDT Impressions 11/19/2023 10:36 AM CDT IMPRESSION: No mammographic evidence of malignancy. RECOMMENDATIONS: Routine screening mammogram in one year. DICTATION LOCATION: [facility] Narrative 11/19/2023 10:36 AM CDT BILATERAL FULL-FIELD DIGITAL SCREENING MAMMOGRAM WITH CAD WITH 3D TOMOSYNTHESIS DATE: 11/17/2023 9:02 AM HISTORY: Routine screening. TECHNIQUE: Full-field digital craniocaudal and mediolateral oblique projections of both breasts were obtained. Low-dose full-field digital breast tomosynthesis examination was performed with 2D and 3D acquisitions. Examination is read in conjunction with computer aided detection. COMPARISON: None. This is the patient's baseline examination. BREAST COMPOSITION: The breasts are heterogeneously dense, which may obscure small masses. FINDINGS: No suspicious mass, suspicious microcalcifications, or architectural distortion in either breast is identified. Since the prior study, there has been no significant interval change. The computer aided diagnosis detects no significant abnormality. OVERALL FINAL ASSESSMENT: BI-RADS CATEGORY 1 - Negative Procedure Note Ozzy Cuellar MD - 11/19/2023 BILATERAL FULL-FIELD DIGITAL SCREENING MAMMOGRAM WITH CAD WITH 3D TOMOSYNTHESIS DATE: 11/17/2023 9:02 AM HISTORY: Routine screening. TECHNIQUE: Full-field digital craniocaudal and mediolateral oblique projections of both breasts were obtained. Low-dose full-field digital breast tomosynthesis examination was performed with 2D and 3D acquisitions. Examination is read in conjunction with computer aided detection. COMPARISON: None. This is the patient's baseline examination. BREAST COMPOSITION: The breasts are heterogeneously dense, which may obscure small masses. FINDINGS: No suspicious mass, suspicious microcalcifications, or architectural distortion in either breast is identified. Since the prior study, there has been no significant interval change. The computer aided diagnosis detects no significant abnormality. OVERALL FINAL ASSESSMENT: BI-RADS CATEGORY 1 - Negative IMPRESSION: No mammographic evidence of malignancy. RECOMMENDATIONS: Routine screening mammogram in one year. DICTATION LOCATION: [facility] China Page MD MAMMO ORDERABLES Final Result from Last 3 Months or Most Recently Relevant to Health Maintenance Insurance [employer] ([employer]) [employer] [facility] Care Teams Substation Technician Relationship Specialty [place] [id number] [address] PCP - General 10/04/12
--- OUTSIDE RECORDS SUMMARY | 2024-11-27 00:52 | XMS_ITS | Encounter Summary ---
Author Organization [facility] Address [address] [place] [address] Care Team Providers Care Supervisor Coremaker Name Role Phone China Page MD Primary Care Provider [phone] Encounter Details Date Type Department Care Team (Late Contact Info) Description 10/27/2015 Lab Requisition [facility] General Laboratory Services [address] [address] Elroy Whitman MD NO ADDRESS ON FILE Social History Tobacco Use Types Packs/Day Years Used Date Smoking Tobacco: Never Smokeless Tobacco: Never Alcohol Use Standard Drinks/Week Comments Yes 0 (1 standard drink = 0.6 oz pur e alcohol) rarely Comments No Sex and Gender Information Value Date Recorded Sex Assigned at Not on file 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 Gender Identity Not on file Sexual Orientation Not on file Occupation Industry Job Start Date Job End Date Not on file Not on file Not on file Not on file documented as of this encounter Plan of Treatment Upcoming Encounters Date Type Department Care Team (Late st Contact Info) Description 11/29/2024 9:30 AM CDT Procedure visit [facility] Neurology [address] [place] [address] Vic Barraza MD [address] [place] [address] 02/18/2025 8:30 AM CDT Office Visit [facility] Neurology [address] [place] [address] Vic Barraza MD [address] [place] [address] 02/21/2025 9:30 AM CDT Procedure visit [facility] Neurology [address] [place] [address] Vic Barraza MD [address] [place] [address] 05/13/2025 9:15 AM CDT Office Visit [facility] Pulmonology [facility] [address] [place] [address] Joe Pascal MD [address] [place] [address] 11/04/2025 9:00 AM CDT Office Visit [facility] Primary Care - [facility] [address] [address] [place] [id number] [place] [address] documented as of this encounter Procedures Procedure Name Priority Date/Time Associated Diagnosis Comments HEPATITIS C RNA PCR, QUANTITATIVE Routine 10/27/2015 8:45 AM CDT documented in this encounter Results * HEPATITIS C RNA PCR, QUANTITATIVE (10/27/2015 8:45 AM CDT) HEPATITIS C RNA PCR, QUANT Undetected Undetected IU/mL 10/28/2015 5:38 PM CDT [facility] Comment: Result in log IU/mL is Undetected. ADDITIONAL INFORMATION The quantification range of this assay is 15 to 100,000,000 IU/mL (1.18 log to 8.00 log IU/mL). Testing was performed by the [employer] AmpliPrep/TAI TaqMan HCV Test, version 2.0 ([employer] Test Performed by: [place] [address] Paraffin Plant Sweater Operator: Joaquin Wiggins II, M.D., Ph.D. Blood specimen (specimen) 10/27/2015 8:45 AM CDT 10/27/2015 12:25 PM CDT us Elroy Whitman MD CHEMISTRY ORDERABLES Final Re sult [facility] documented in this encounter Visit Diagnoses Not on filedocumented in this encounter Care Teams Supervisor Coremaker Relationship Specialty [place] [phone] [address] PCP - General 10/04/12 documented as of this encounter
--- NOTE | 2024-11-27 06:57 | P.OP_ITS ---
Procedure Note - Detailed Date of Procedure 11/27/24 Pre-op Diagnosis Sprain of Carpal Joint Right Wrist Post-op Diagnosis Same Procedure Performed right wrist arthroscopy debridement tfcc , ecu sheath release, dorsal ulnocarpal ligament capsulodesis Surgeon Aixa Owen MD Machine Heel Sprayer barbie win pa-c Anesthesia General Description of Procedure INFORMED CONSENT: The patient was seen and examined and marked in the pre-op area.? The patient signed the consent form. PROCEDURE IN DETAIL:The patient taken back to OR on the stretcher in supine position. Time out performed with anesthesia, surgeon and staff agreeing on patient's name site and surgery to be performed SCDs were placed on the lower extremities and inflated. A tourniquet was placed on {right} upper extremity and antibiotics given IV After anesthesia administered sedation I injected {10}cc 1%lido with epi and 0.5% marcaine plain at the operative site The?{right upper extremity}?was prepped and draped in sterile fashion the??{right upper extremity/} was? exsanguinated with Esmarch bandage and tourniquet inflated to 250mmHg The Acumed traction tower was assembled and brought into the field. The right upper extremity was placed in the traction tower and using finger traps the wrist was placed on 10 mmHg traction. I further localized the portal placement using 27 gauge needle. Fifteen blade scalpel was used to make an incision for my 4R and 4U portal and 6R portal through skin and dermis. Curved hemostat was used to spread bluntly down to the joint capsule and enter the ulnocarpal joint. Next I was able to insert the Arthrex nanoscope into my for 4R portal and visualized the radiocarpal joint. The joint was clearly visualized with normal appearing SL and radiocarpal ligaments and no significant synovitis. Moving the camera into the 4U poral I visualized the ulnocarpal joint with a notable amount of hyperemic synoviits. I inserted the 3mm arthex shaver via my 6 R portal to remove synovitis and improve visualization. Hyperemic tissue was also cauterized. I visualized a central tfcc tear and the edges of this were smoothed and cauterized. The joint was irrigated and instrumentation removed and the wrist taken off traction. Next, I proceeded with extending my 6R portal proximally and distally through skin and dermis with 15 blade scalpel. Littler scissors were used to spread down the the ECU sheath. I made an incision in the dorsal aspect of the ecu sheath. The ecu was retracted radially and dorsal ulnocarpal capsule visualized. 3-0 fiberwire was used to imbricate and repair/tighten the looser dorsal ulnocarpal ligaments and improve druj stability. After capsulodes the druj appeared to have improved stability with stress in pronosupination. I irrigated with normal saline. portal sites were closed with 4-0 chromic and 4-0 monocryl for dermis and subcuticular was used to closed the ulnar wrist incision. A dressing of exofin, 4x4, akosua, and an ulnar gutter splint was applied for patient safety, security, and comfort and secured with an letty bandage after the tourniquet was let down noting the hand was warm and well perfused. The patient was then awaken from anesthesia and transferred to the recovery room in stable condition.? Complications - none EBL- 0cc Disposition - home in stable conditions Barbie Win PA-C was essential for positioning, retraction, instrumentation, closure and dressing placement [facility] Billing Surgery - Charge Forward: Surgery Billing ([phone] same for barbie barcenas )
--- NOTE | 2024-11-27 06:57 | WPDHPUPDATE1 ---
History and Physical Update Update Date/Time: 11/27/24 06:57 Patient seen and examined in pre-operative holding area. No interval change in medical history or symptoms. Patient recalls previous discussion of benefits and alternatives to procedure. Continues to desire to proceed with right wrist artrhoscopy, possible debridement and ecu sheath release/recon . Reviewed procedure, post-op expectations and risks including but not limited to bleeding, infection, injury to tendon/nerve/vessel, decreased hand function, stiffness, RSD, no change or worsening of symptoms. I discussed the possible use of assistants and their participation in the case. Patient stated understanding and signed the consent form wishing to proceed.
[2024-11-27] MEDS: LACTATED RINGERS 1,000 ML 30 ML IV CONT ×2 (07:30→10:42)
[2024-11-27 07:42] LABS: BEDSIDEPREGUCG Negative (Negative)
[2024-11-27] MEDS: LIDO 1%/EPINEPHRINE 1:100,000 20 ML VIAL 10 ML INFILTRATE (07:59)
[2024-11-27] MEDS: ceFAZolin 2 GM/D5W 50 ML 2 GM/50 ML BAG IVPB (09:28)
[2024-11-27] MEDS: fentaNYL CITRATE INJ (*CRX) 100 MCG/2 ML VIAL 25 MCG IV PUSH ×8 (10:50→11:16)
[2024-11-27] MEDS: HYDROmorphone HCL INJ (*CRX) 1 MG/ML SYR 0.25 MG IV PUSH ×4 (11:21→11:45)
[2024-11-27] MEDS: oxyCODONE HCL (*CRX) 5 MG TAB IR PO (12:19)
== END 2024-11-27 13:10 | disposition home or self-care (01) ==
PROVIDERS: Visit Provider Plastic Surgery
PROC: (CPT 29840; principal; 2024-11-27 09:00)
DX: S63.511A Sprain of carpal joint of right wrist, initial encounter (principal); M65.841 Other synovitis and tenosynovitis, right hand; Y93.15 Activity, underwater diving and snorkeling; K21.9 Gastro-esophageal reflux disease without esophagitis; E66.9 Obesity, unspecified; Z68.34 Body mass index [BMI] 34.0-34.9, adult; Z79.85 Long-term (current) use of injectable non-insulin antidiabetic drugs; Z79.891 Long term (current) use of opiate analgesic
CPT/HCPCS: 29846; 25320; A9270; J0690; J1100; J1171; J1885; J2004; J2250; J2405; J2704; J3010; J7120

== ENCOUNTER → 2025-04-17 08:13 | Outpatient (CLI) | payer BC, SELFPAY ==
--- NOTE | ~2025-04-17 | XR_ITS ---
EXAMINATION: XR wrist RT min 3V, 04/17/2025 8:15 CDT HISTORY: S63.511A - Sprain of carpal joint of right wrist, initial... COMPARISON: No comparisons available. Findings: No acute fracture or malalignment. No significant degenerative changes. Soft tissues unremarkable. Impression: No acute fracture or malalignment. Reviewed, dictated and finalized at location A. Impression: No acute fracture or malalignment.
--- OUTSIDE RECORDS SUMMARY | 2025-04-17 08:36 | XMS_ITS | Clinical Summary ---
Author Organization [facility] [address] [place] [address] Care Team Providers Care International Coordinator Name Role Phone China Page MD Primary Care Provider [phone] Allergies Active Allergy Reactions Criticality Noted Date Comments Sulfa (Sulfonamide Antibiotics) Unknown,Other (See comments) Low 05/09/2010 Medications omeprazole (PriLOSEC) 40 mg capsule Take 1 capsule (40 mg total) by mouth daily Active traZODone (DESYREL) 50 mg tablet Take 1 tablet (50 mg total) by mouth nightly Active levonorgestrel (MIRENA) IUD Active topiramate (TOPAMAX) 50 mg tablet 0 Active famotidine (PEPCID) 20 mg tablet Take 1 tablet (20 mg total) by mouth 2 (two) times a day Active scopolamine 1 mg over 3 days patch 3 day scopolamine 1 mg over 3 days transdermal patch APPLY 1 PATCH TOPICALLY TO THE SKIN EVERY 72 HOURS DIRECTED 1 Active metoclopramide (REGLAN) 5 mg tablet TAKE 2 TABLETS BY MOUTH THREE TIMES DAILY BEFORE MEALS 2 Active galcanezumab-gn lm (Emgality Pen) 120 mg/mL pen injector Inject 1 mL under the skin every 4 (four) weeks 1 Active tretinoin (RETIN-A) 0.05 % cream Apply topically nightly 4 Active hyoscyamine ER (LEVBID) 0.375 mg 12 hr tablet Take 1 tablet (375 mcg total) by mouth every 12 (twelve) hours 4 Active hyoscyamine (LEVSIN) 0.125 mg SL tablet Take 1 tablet (0.125 mg total) by mouth 4 Active clindamycin (CLEOCIN T) 1 % lotion APPLY TO ARMPITS TWICE DAILY ON GOING Active Hospital, Clinic, or Other Facility Administered Medication [...] Encounters Date Type Department Care Team Description 03/18/2025 7:00 AM CDT Office Visit [facility] Medical Group Midwifery at [address] [address] Bhakti Gilbert CNM Inclusion cyst of vulva (Primary Dx) from Last 3 Months Immunizations Immunization Administration [...] Comments Father Maternal Grandfather Maternal Grandmother Natalie Mother April Mother's Brother Paternal Grandfather AJ Paternal Grandmother [...] Sign Reading Time Taken Comments Blood Pressure 116/62 03/18/2025 7:02 AM CDT Pulse 92 10/07/2020 6: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 Temperature 36.3 C (97.4 F) 08/04/2020 7:53 AM 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 Respiratory Rate - - Oxygen Saturation 100% 10/07/2020 6: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 Inhaled Oxygen Concentration - - Weight 96.3 kg (212 lb 3.2 oz) 03/18/2025 7:02 A M CDT Height 167.6 cm (5' 5.98) 03/18/2025 7:02 AM CD T Body Mass Index 34.27 03/18/2025 7:02 AM CDT Plan of Treatment Health Maintenance Due Date Last Done Comments Depression Screening 1980 Hepatitis C Screening 1980 DTaP/Tdap/Td Vaccine (1 - Tdap) 1993 Varicella Vaccines (1 of 2 - 13+ 2-dose series) 1995 Hepatitis B Screening 2000 HPV Vaccines (1 - 3-dose SCDM series) 2009 Covid-19 Vaccine ( season) 2024 06/30/2021, 08/14/2020, 07/24/2020 Influenza Vaccine (#1) 2025 , 05/09/2019, 05/07/2018, Additional history exists Regular Well Visit/Exam 18-64 11/22/2025 11/22/2024, 11/14/2023, 11/10/2022, Additional history exists Breast Cancer Screening-Mammogram 12/25/2025 12/25/2024, 11/17/2023, 11/17/2023, Additional history exists Cervical Cancer Screening 11/08/2026 11/08/2021, Pneumococcal vaccine <65 Aged Out No longer eligible based on patient's age to complete this topic Procedures Procedure Name Priority Date/Time Associated Diagnosis Comments SCREENING MAMMOGRAM BILATERAL W ELIAS Schedule Routine, Read Routine (OP Routine) 12/25/2024 9:47 AM CDT Screening mammogram for breast cancer PAP AND HIGH RISK HPV, REFLEX TO GENOTYPING Routine 11/08/2021 2:23 PM CDT Routine gynecological examination from Last 3 Months or Most Recently Relevant to Health Maintenance Results * Screening Mammogram Bilateral W Elias (12/25/2024 9:47 AM CDT) Anatomical Region Laterality Modality Breast Bilateral Mammography Impressions 12/26/2024 4:52 PM CDT Bilateral No evidence of malignancy in either breast. OVERALL BI-RADS FINAL ASSESSMENT: 2 - Benign RECOMMENDATION: Recommend bilateral annual screening mammography. Narrative 12/26/2024 4:52 PM CDT EXAMINATION: Screening Mammogram Bilateral W Elias: 12/25/2024 COMPARISON: Relevant prior studies available at the time of interpretation were reviewed. TECHNIQUE: Mammography was performed with 2D and digital breast tomosynthesis (DBT) images. CAD was utilized. BREAST PARENCHYMAL COMPOSITION: The breasts are heterogeneously dense, which may obscure small masses. FINDINGS: Bilateral There is no suspicious mass, calcification, or architectural distortion in either breast. Bhakti Gilbert CNM IMG MAMMO PROCEDURES Final Res ult * Pap and High Risk HPV, reflex to Genotyping (11/08/2021 2:23 PM CDT) Thin prep (Pap test) 11/08/2021 2:23 PM CDT 11/10/2021 11:09 AM CDT Narrative PATHOLOGY [facility] - 11/12/2021 9:52 AM CDT EPIC results best viewed via link to PDF [address] [address] Tele: Leatha Madrid MD - Client Solutions Specialist CYTOLOGY REPORT Note to Patients: This report [...] the details. Patient Name: TIFFANIE WINSLOW Address: [address] [place] [address]- Gender: F : 1980 (Age: 41) Service: Location: N : [id number] Hospital #: [id number] [place] [facility] Taken: 11/08/2021 Reported: 11/12/2021 Physician(s): [place] Abbott M.D. FINAL DIAGNOSIS: Specimen Type: - ThinPrep Pap and HPV w/ reflex Genotyping Statement of Specimen Adequacy: Source: Cervical/Endocervical - Satisfactory for interpretation - Endocervical /Transformation Zone component present - Case screened using computer assisted imaging technology and manually re- screened by a commercial announcer. General Categorization: - Negative for intraepithelial lesion or malignancy cad/11/12/2021 09:52 Batool Ladd M.S., BASHIR (ASCP) Report Reviewed and Electronically Signed By Batool Ladd M.S., CT (ASCP) Clerical Data Follow A; [id number] DIAGNOSIS [...] LAB CYTOLOGY ORDERABLES F inal Result PATHOLOGY [facility] Laboratory Receiving [address] [place] [address] from Last 3 Months or Most Recently Relevant to Health Maintenance Insurance [facility] Address: [facility] [id number] [place] [address] [facility] CHOICE PLUS [facility] HMO/PPO Address: [address] [address] [place] [address] [facility] [employer] [facility] [employer] Care Teams International Coordinator Relationship Specialty [place] [phone] [place] [address] [address] PCP - General Internal Medicine 02/20/19
--- OUTSIDE RECORDS SUMMARY | 2025-04-17 08:36 | XMS_ITS | Clinical Summary ---
Author Organization [facility] Address [address] [place] [address] Care Team Providers Care Cio Name Role Phone China Page MD Primary Care Provider [phone] Allergies Active Allergy Reactions Criticality Noted Date [...] HOURS NEEDED FOR SPASMS 12/22/19 23 Active albuterol sulfate HFA 90 mcg/actuation aerosol inhalerIndicati ons:Acute cough Take 2 Puffs by inhalation every 6 hours as needed for Shortness of Breath. 8.5 Gram 08/04/20 23 Active inhalational spacing device (Microchamber) SpacerIndicatio ns:Acute cough Use with inhaler 1 Each 08/04/20 23 Active sucralfate (CARAFATE) 1 gram tablet Take 1 Gram by mouth. 09/20/19 24 Active SPIRONOLACTONE ORAL Take 100 mg by mouth daily. Active fluticasone furoate-vilante roL (BREO ELLIPTA) 200-25 [...] once every three days 20 Patch 07/01/20 24 Active ketoconazole (NIZORAL) 2 % Cream APPLY TOPICALLY TO FACE RASH TWICE DAILY UNTIL GONE THEN NEEDED Active tretinoin (RETIN-A) 0.05 % Cream Apply to affected area. 11/09/19 24 Active ciprofloxacin-d exAMETHasone (CIPRODEX) 0.3-0.1 % Drops, Suspension Administer 4 Drops in both ears 2 times daily. 7.5 mL 3 10/30/19 25 Active amoxicillin-cla vulanate (AUGMENTIN) 875-125 mg tablet Take 1 Tablet by mouth 2 times daily. 11/02/19 25 Active cephALEXin (KEFLEX) 500 mg capsule Take 1 Capsule by mouth 2 times daily. 11/28/19 25 Active Emgality Pen 120 mg/mL Pen Injector ADMINISTER 1 ML UNDER THE SKIN EVERY 30 DAYS 1 mL 11 02/06/20 25 Active traZODone (DESYREL) 50 mg tablet TAKE 1 TABLET(50 MG) BY MOUTH DAILY AT BEDTIME 100 Tablet 3 02/07/20 25 Active clindamycin phosphate (CLEOCIN) 1 % Lotion Apply to affected area 2 times daily. Active butalbital-acet aminophen-caffe ine (FIORICET) 50-325-40 mg tabletIndicatio ns:Chronic migraine without aura without status migrainosus, not intractable Take 1 Tablet by mouth 1 time daily as needed for Migraine. 4 Tablet 5 02/22/20 Active Active Problems Problem Noted Date Diagnosed Date Chronic migraine w/o aura w/ o status migrainosus, not intractable 11/29/2024 Gomes's esophagus 07/06/2023 Dyspepsia 07/06/2023 Family history [...] 05/23/2012 Other specified iron deficiency anemias 04/28/20 Absolute anemia 04/28/2011 Anal fissure 05/14/2009 Encounters Date Type Department Care Team Description 03/11/2025 External Device Data STL ABSTRACTION Provider, Abstract 03/06/2025 Abstract [facility] Neurology [address] [place] [address] Vic Barraza MD 02/21/2025 9:30 AM CDT Procedure visit [facility] Neurology [address] [place] [address] Vic Barraza MD Chronic migraine w/o aura w/o status migrainosus, not intractable (Primary Dx); Chronic migraine without aura without status migrainosus, not intractable 02/19/2025 External Device Data STL ABSTRACTION Provider, Abstract 02/18/2025 8:30 AM CDT Video Visit [facility] Neurology [address] [place] [address] Vic Barraza MD Chronic migraine w/o aura w/o status migrainosus, not intractable (Primary Dx) 02/18/2025 External Device Data STL ABSTRACTION Provider, Abstract 02/18/2025 Abstract [facility] [address] [facility] [address] [place] [address] China Page MD 02/05/2025 Refill [facility] [address] [facility] [address] [place] [phone] China Page MD 02/02/[facility] [address] [facility] [address] [place] [address] Vic Barraza MD 01/21/2025 External Device Data STL ABSTRACTION Provider, Abstract from Last 3 Months Immunizations Immunization Administration Dates Next Due (PFIZER)(12 YR UP) COVID-19 VACCINE - EMERGENCY USE AUTHORIZATION, MRNA, [id number]) 30 MCG/0.3 ML IM SUSP 08/14/2020,07/24/2020 INFLUENZA [...] Disease Maternal Grandmother Natalie due to Alzheimer's Hemophilia Maternal Grandmother Natalie Hx DVT Migraines Maternal Grandmother Natalie Arthritis-rheumatoid Mother April Cancer Mother April Paget's of vulv a and anus Cancer - Other Mother April Extramammary Paget's Hemophilia Mother April Hx DVT/mult PE. 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 Gender Identity Not on file Sexual Orientation Not on file Occupation Industry Job Start Date Job End Date Not on file Not on file Not on file Not on file Last Filed Vital Signs Vital Sign Reading Time Taken Comments Blood Pressure 105/73 02/21/2025 9:23 AM CDT Pulse 87 02/21/2025 9:23 AM CDT Temperature 36.6 C (97.9 F) 11/04/2024 9:06 AM CDT Respiratory Rate 18 10/29/2024 8:49 AM CDT Oxygen Saturation 98% 02/21/2025 9:23 AM CDT Inhaled Oxygen Concentration - - Weight 94.8 kg (209 lb) 02/21/2025 9:23 AM CDT Height 167.6 cm (5' 6) 02/21/2025 9:23 AM CDT Body Mass Index 33.73 02/21/2025 9:23 AM CDT Plan of Treatment Upcoming Encounters Date Type Department Care Team (Late st Contact Info) Description 05/13/2025 9:15 AM CDT Office Visit [facility] Pulmonology [facility] [address] [place] [address] Joe Pascal MD [address] [place] [address] 05/16/2025 8:00 AM CDT Procedure visit [facility] Neurology [address] [place] [address] Vic Barraza MD [address] [place] [address] 06/24/2025 9:30 AM MACHINE SHORTHAND REPORTER Office Visit [facility] Neurology [address] [place] [address] Vic Barraza MD [address] [place] [address] 08/08/2025 11:00 AM MACHINE SHORTHAND REPORTER Procedure visit [facility] Neurology [address] [place] [address] Meghna Millan FNP [address] [place] [address] 11/04/2025 9:00 AM CDT Office Visit [facility] Primary Care - [facility] [address] [address] [place] [address] [address] Health Maintenance Due Date Last Done Comments DTAP/TDAP/TD VACCINES (1 - Tdap) 2001 HEPATITIS B VACCINES (1 of 3 - 19+ 3-dose series) 2001 HPV/Cotest (21-29) 2003 HPV VACCINES (1 - 3-dose SCD M series) 2009 HPV/Cotest (30-65) 2012 CERVICAL CANCER SCREENING 11/08/2024 PAP SMEAR 11/08/2024 11/08/2021 INFLUENZA VACCINE (#1) 2025 , 04/17/2020, 05/09/2019, Additional history exists COVID-19 Vaccine ( - 2024-2 6 season) 2025 06/30/2021, 08/14/2020, 07/24/2020 BREAST CANCER SCREENING 12/25/2025 12/26/19, 12/25/2024, 11/17/2023, Additional history exists Pre-Diabetes and Diabetes Screening 10/30/2027 10/29/2024, 10/23/2023 Preventative Visit- Commercial Completed 0 11/22/2024, 10/29/2024, 11/14/2023, Additional history exists Procedures Procedure Name Priority Date/Time Associated Diagnosis Comments OH CHEMODERVATE FACIAL/TRIGEM/CERV MUSC MIGRAINE Routine 02/21/2025 10:04 AM CDT Chronic migraine w/o aura w/o status migrainosus, not intractable HEMOGLOBIN A1C Routine 10/29/2024 9:43 AM CDT Encounter for preventative adult health care examination MAMMO 3D GIOVANNY SCREEN BILAT W OR WO CAD Routine 11/17/2023 9:02 AM CDT Encounter for routine adult health examination without abnormal findings from Last 3 Months or Most Recently Relevant to Health Maintenance Results * OH CHEMODERVATE FACIAL/TRIGEM/CERV MUSC MIGRAINE (02/21/2025 10:04 AM CDT) Narrative Vic Barraza MD - 02/21/2025 10:04 AM CDT Vic Barraza MD 02/21/2025 10:06 AM Botox Procedure Note Patient: Tiffanie Yuen Mihelcic / 44 y.o. / female : 1980 BP 105/73 (BP Location: Left arm, Patient Position (BP): Sitting) Pulse 87 Ht 5' 6 (1.676 m) Wt 94.8 kg (209 lb) SpO2 98% BMI 33.73 kg/m Procedure Performed: Botox for Chronic Migraine without Aura Date of Service: 02/21/2025 Provider: Vic Barraza MD Medical Necessity for Procedure: This patient has a history of intractable headache present for 15 or more days per month, at least 8 of which lasting for more than 4 hours a day and meeting migraine criteria for at least 3 months. They have tried at least 2 migraine prophylaxis medications. It is medically necessary to proceed with Botulinum toxin A injections per PREEMPT protocol in order to optimize this patient's treatment plan that will result in improved level of functioning and quality of life. Past Medical History: Past Medical History: Diagnosis Date Allergic rhinitis Barretts esophagus ~2014- resolved Bone spur of other site right foot bone spur GERD (gastroesophageal reflux disease) Headache Migraines. ~2021. Follow w [facility] Irritable bowel Sleep disorder Take Trazodone Supporting Evidence for the Treatment's Effectiveness: BOTOX was evaluated in two randomized, multi-center, 24-week, 2 injection cycle, placebo-controlled double-blind studies. Study 1 and Study 2 included chronic migraine adults who were not using any concurrent headache prophylaxis, and during a 28-day baseline period had >15 headache days lasting 4 hours or more, with >50% being migraine/probable migraine. In both studies, patients were randomized to receive placebo or 155 Units to 195 Units BOTOX injections every 12 weeks for the 2-cycle, double-blind phase. Patients were allowed to use acute headache treatments during the study. BOTOX treatment demonstrated statistically significant and clinically meaningful improvements from baseline compared to placebo for leal efficacy variables (see Table 31). Patients treated with BOTOX had a significantly greater mean decrease from baseline in the frequency of headache days at most timepoints from Week 4 to Week 24 in Study 1 (Figure 11), and all timepoints from Week 4 to Week 24 in Study 2 (Figure 12), compared to placebo-treated patients. Diagram of Injection sites: Assessment: Pre botox headache frequency: 15-30 days/mo Post botox headache frequency: It improved significantly, she is barely using Fioricet as needed, the masseter injections have been helping with her TMJ/grinding her teeth 2024 Total Headache Days Migraine Days AugustMarch 08 0 April 2 0 May 3 0 June 3 1 July 0 0 2024 Total Headache Days Migraine Days August 20September 08 0 October 06 0 November 06 0 December 06January 06February 04March Other preventative medications: Topamax 100 mg twice daily and Emgality 120 mg monthly. Abortive medications: Fioricet (only 4 tablets/month) Past preventative medications: Verapamil 80 mg TID was not effective. Propranolol 40 mg twice daily was effective, but had significant fatigue with it Past abortive medications: Acetaminophen is not effective. Can't take NSAIDs due to gastritis. Sumatriptan caused severe side effects. Rizatriptan, zolmitriptan, Eletriptan are not effective. Nurtec samples (not helpful) Urogepant 100 mg is not effective Procedure Details: The patient was educated about the risks and benefits of the procedure prior to starting. The patient signed a form showing they received informed consent. Then the patient was given Botox as follows: OnabotulinumtoxinA-Botox 200 units (lot # [id number]; expiration 06/06/2027) was reconstituted using 4 ml preservative free saline to a final concentration of 50 units/ml. Using 1 ml syringes with 30 gauge 0.5 inch needles, and aseptic technique, Botox was administered as follows: Muscle # units Right # of inj sites Right # units Left # of inj sites Left Total units Supervisor Money Room 5 1 5 1 10 Procerus 5 Frontalis 10 2 10 2 20 Temporalis 20 4 20 4 40 Occipitalis 15 3 15 3 30 Cervical Paraspinals 10 2 10 2 20 Trapezius 15 3 15 3 30 Masseters 15 3 15 3 30 TOTAL injected 185 Units wasted 15 Each injection was preceded by negative aspiration for blood. Patient tolerated the procedure well. Post-injection care instructions reviewed and patient discharged in good and stable condition. Medications Administered This Visit: Administrations This Visit onabotulinumtoxinA (BOTOX) injection 185 Units Admin Date 02/21/2025 Action Given Dose 185 Units Route IM Documented By Vic Barraza MD sodium chloride bacteriostatic 0.9 % injection 2-4 mL Admin Date 02/21/2025 Action Given Dose 4 mL Route See Admin Instructions Documented By Vic Barraza MD Were there any complications during this procedure or following previous Botox procedures for Chronic Migraine?: No Treatment Plan: Continue Botox every 12 weeks Follow up assessment scheduled Vic Barraza MD Vic Barraza MD PROCEDURE/MINOR SURGICAL ORDER JUAN MIGUEL Final Result * HEMOGLOBIN A1C (10/29/2024 9:43 AM CDT) HEMOGLOBIN A1C 5.1 <5.7 % of total Hgb [facility] Comment: For the purpose of screening for the presence of diabetes: <5.7% Consistent with the absence of diabetes 5.7-6.4% Consistent with increased risk for diabetes (prediabetes) > or =6.5% Consistent with diabetes This assay result is consistent with a decreased risk of diabetes. Currently, no consensus exists regarding use of hemoglobin A1c for diagnosis of diabetes in children. According to [place] Diabetes Association (ADA) guidelines, hemoglobin A1c <7.0% represents optimal control in non- diabetic patients. Different metrics may apply to specific patient populations. Standards of Medical Care in Diabetes(ADA). ESTIMATED AVERAGE GLUCOSE (MG/DL) 100 mg/dL [facility] Jose F ESTIMATED AVERAGE GLUCOSE (MMOL/L) 5.5 mmol/L [facility] Comment: FASTING:YES FASTING: YES Test Performed at: [place] [address] [address] [place] [phone] Z[facility]Div[facility] Cason Vo Blood 10/29/2024 9:43 AM CDT 10/29/2024 9:51 AM CDT China Page MD CHEMISTRY ORDERABLES Final Resul t [facility] [phone] [place] [id number] [address] [place] [phone] * MAMMO 3D GIOVANNY SCREEN BILAT W OR WO CAD (11/17/2023 9:02 AM CDT) Anatomical Region Laterality Modality Breast Bilateral Mammography 11/17/2023 9:03 AM CDT Impressions 11/19/2023 10:36 AM CDT IMPRESSION: No mammographic evidence of malignancy. RECOMMENDATIONS: Routine screening mammogram in one year. DICTATION LOCATION: [facility] Narrative 11/19/2023 10:36 AM CDT BILATERAL [...] screening mammogram in one year. DICTATION LOCATION: [facility] China Page MD MAMMO ORDERABLES Final Result from Last 3 Months or Most Recently Relevant to Health Maintenance Insurance [facility] [employer] (INTERNAL) [facility] Care Teams Cio Relationship Specialty Start Date End Date China Page [place] [id number] [place] [address] PCP - General 10/04/12
--- OUTSIDE RECORDS SUMMARY | 2025-04-17 08:36 | XMS_ITS | Encounter Summary ---
Author Organization [facility] Address [address] [place] [address] Care Team Providers Care Dye Range Operator Cloth Name Role Phone China Page MD Primary Care Provider [phone] Encounter Details Date Type Department Care Team (Late Contact Info) Description 04/04/2016 Lab Requisition [facility] General Laboratory Services [address] [address] Elroy Whitman MD NO ADDRESS ON FILE Social History Tobacco Use Types Packs/Day Years Used Date Smoking Tobacco: Never Smokeless Tobacco: Never Alcohol Use Standard Drinks/Week Comments Yes 0 (1 standard drink = 0.6 oz pur e alcohol) rarely Comments No Sex and Gender Information Value Date Recorded Sex Assigned at Not on file 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 Pulmonology [facility] [address] [place] [address] Joe Pascal MD [address] [place] [address] 05/16/2025 8:00 AM CDT Procedure visit [facility] Neurology [address] [place] [address] Vic Barraza MD [address] [place] [address] 06/24/2025 9:30 AM MILL SUPERVISOR Office Visit [facility] Neurology [address] [place] [address] Vic Barraza MD [address] [place] [address] 08/08/2025 11:00 AM MILL SUPERVISOR Procedure visit [facility] Neurology [address] [place] [address] Meghna Millan, AUTOMOBILE WASHER [employer] [address] [place] [address] 11/04/2025 9:00 AM CDT Office Visit [facility] Primary Care [facility] [id number] [place] [address] China Page [place] [id number] [place] [address] documented as of this encounter Procedures Procedure Name Priority Date/Time Associated Diagnosis Comments HEPATITIS C ANTIBODY Routine 04/04/2016 8:33 AM CDT ALT Routine 04/04/2016 8:33 AM CDT documented in this encounter Results * HEPATITIS C ANTIBODY (04/04/2016 8:33 AM CDT) HEPATITIS C AB NON-REACTI VE Non-reacti ve 04/04/2016 12:41 PM CDT [facility] LABORATORY SERVICES [facility] Blood Collection / Unknown 04/04/2016 8:33 AM CDT 04/04/2016 12:08 PM CDT Elroy Whitman MD CHEMISTRY ORDERABLES Final Re sult [facility] LABOR[facility]ORY [facility] CLIA # [id number] [address] [place] [address] * ALT (04/04/2016 8:33 AM CDT) ALT 15 <=33 U/L 04/04/2016 12:25 PM CDT [facility] Blood Collection / Unknown 04/04/2016 8:33 AM CDT 04/04/2016 12:08 PM CDT Elroy Whitman MD CHEMISTRY ORDERABLES Final Re sult Performing Organization Address City/Oss Health/ZIP Co de Phone Number [facility] [employer] [facility] CLIA # [id number] [facility] [address] [place] [address] documented in this encounter Visit Diagnoses Not on filedocumented in this encounter Care Teams Dye Range Operator Cloth Relationship Specialty [place] [id number] [phone] PCP - General 10/04/12 documented as of this encounter
--- OUTSIDE RECORDS SUMMARY | 2025-04-17 08:36 | XMS_ITS | Encounter Summary ---
Author Organization [facility] Address [address] [place] [address] Care Team Providers Care Clinical Laboratory Assistant Name Role Phone China Page MD Primary Care Provider [phone] Encounter Details Date Type Department Care Team (Late st Contact Info) Description 11/10/2015 Lab Requisition [facility] General Laboratory Services [address] [address] Elroy Whitman MD NO ADDRESS ON FILE Social History Tobacco Use Types Packs/Day Years Used Date Smoking Tobacco: Never Smokeless Tobacco: Never Alcohol Use Standard Drinks/Week Comments Yes 0 (1 standard drink = 0.6 oz pur e alcohol) rarely Comments No Sex and Gender Information Value Date Recorded Sex Assigned at Not on file 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 Gender Identity Not on file Sexual Orientation Not on file Occupation Industry Job Start Date Job End Date Not on file Not on file Not on file Not on file documented as of this encounter Plan of Treatment Upcoming Encounters Date Type Department Care Team (Late Contact Info) Description 05/13/2025 9:15 AM CDT Office Visit [facility] Pulmonology [facility] [address] [place] [address] Joe Pascal MD [address] [place] [address] 05/16/2025 8:00 AM CDT Procedure visit [facility] Neurology [address] [place] [address] Vic Barraza MD [address] [place] [address] 06/24/2025 9:30 AM DISTRICT DIRECTOR Office Visit [facility] Neurology [address] [place] [address] Vic Barrzaa MD [address] [place] [address] 08/08/2025 11:00 AM DISTRICT DIRECTOR Procedure visit [facility] Neurology [address] [place] [address] Meghna Millan, SOFTWARE TESTER [address] [place] [address] 11/04/2025 9:00 AM CDT Office Visit [facility] Primary Care - [facility] [id number] [place] [address] China Page MD [id number] [place] [address] documented as of this encounter Procedures Procedure Name Priority Date/Time Associated Diagnosis Comments HEPATITIS C ANTIBODY Routine 11/10/2015 9:20 AM CDT ALT Routine 11/10/2015 9:20 AM CDT documented in this encounter Results * HEPATITIS C ANTIBODY (11/10/2015 9:20 AM CDT) HEPATITIS C AB NON-REACTI VE Non-reacti ve 11/10/2015 12:41 PM CDT [facility] LABORATORY SERVICES [facility] Blood 11/10/2015 9:2 0 AM CDT 11/10/2015 12:04 PM CDT us Elroy Whitman MD CHEMISTRY ORDERABLES Final Re sult [facility] LABORATORY [facility] CLIA # [id number] [address] [place] [address] * ALT (11/10/2015 9:20 AM CDT) ALT 13 <=33 U/L 11/10/2015 12:27 PM CDT [facility] LABORATORY [facility] Blood 11/10/2015 9:20 AM CDT 11/10/2015 12:04 PM CDT Elroy Whitman MD CHEMISTRY ORDERABLES Final Re sult Performing Organization Address [facility] Co de Phone Number [facility] [employer] [facility] CLIA # [id number] [facility] [address] [place] [address] documented in this encounter Visit Diagnoses Not on filedocumented in this encounter Care Teams Clinical Laboratory Assistant Relationship Specialty [place] [id number] [address] PCP - General 10/04/12 documented as of this encounter
--- OUTSIDE RECORDS SUMMARY | 2025-04-17 08:36 | XMS_ITS | Encounter Summary ---
Author Organization [employer] Address [address] [place] [address] Care Team Providers Care Pathology Laboratory Aides Teacher Name Role Phone China Page MD Primary Care Provider [phone] Reason for Visit * Reason Onset Date Comments F/U after injection phone call 06/06/2023 Encounter Details Date Type Department Care Team (Late st Contact Info) Description 06/06/2023 Telephone [facility] [address] [place] [address] Danyelle Bailey GN F/U after injection phone call Social History Tobacco Use Types Packs/Day Years Used Date Smoking Tobacco: Never Smokeless Tobacco: Never Alcohol Use Standard Drinks/Week Comments Yes 0 (1 standard drink = 0.6 oz pur e alcohol) rarely Comments No Sex and Gender Information Value Date Recorded Sex Assigned at Not on file 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 Mentioned Debbie VOUCHER EXAMINER clinical note says to try pelvic floortherapy. She isn't wanting to do that at this time. She will follow up with Dr Gaviria in clinic as needed. Verified with patient contact information for Dr. Gaviria was shared. Instructed to contact us with any questions or concerns at [phone] option 6 documented in this encounter Plan of Treatment Upcoming Encounters Date Type Department Care Team (Late st Contact Info) Description 05/13/2025 9:15 AM CDT Office Visit [facility] Pulmonology [facility] [address] [place] [address] Joe Pascal MD [address] [place] [address] 05/16/2025 8:00 AM CDT Procedure visit [facility] Neurology [address] [place] [address] Vic Barraza MD [address] [place] [address] 06/24/2025 9:30 AM RODDING ANODE WORKER Office Visit [facility] Neurology [address] [place] [address] Vic Barraza MD [address] [place] [address] 08/08/2025 11:00 AM RODDING ANODE WORKER Procedure visit [facility] Neurology [address] [place] [address] Meghna Millan FNP [address] [place] [address] 11/04/2025 9:00 AM CDT Office Visit [facility] Primary Care [facility] [phone] [place] [address] [place] [id number] [place] [phone] documented as of this encounter Visit Diagnoses Not on filedocumented in this encounter Care Teams Pathology Laboratory Aides Teacher Relationship Specialty Start Date End Date China Page MD [address] [place] [address] PCP - General 10/04/12 documented as of this encounter
--- OUTSIDE RECORDS SUMMARY | 2025-04-17 08:36 | XMS_ITS | Encounter Summary ---
Author Organization [facility] Address [address] [place] [address] Care Team Providers Care Foam Tank Laminator Name Role Phone China Page MD Primary Care Provider [phone] Encounter Details Date Type Department Care Team (Late Contact Info) Description 12/30/2015 Lab Requisition [facility] Laboratory Services [address] [address] Elroy Whitman MD NO ADDRESS ON FILE Social History Tobacco Use Types Packs/Day Years Used Date Smoking Tobacco: Never Smokeless Tobacco: Never Alcohol Use Standard Drinks/Week Comments Yes 0 (1 standard drink = 0.6 oz pur e alcohol) rarely Comments No Sex and Gender Information Value Date Recorded Sex Assigned at Not on file Legal Sex Female 7:22 PM 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 PLANT MAINTAINER Gender Identity Not on file Sexual Orientation Not on file Occupation Industry Job Start Date Job End Date Not on file Not on file Not on file Not on file documented as of this encounter Plan of Treatment Upcoming Encounters Date Type Department Care Team (Late Contact Info) Description 05/13/2025 9:15 AM CDT Office Visit [facility] Pulmonology [facility] [address] [place] [address] Joe Pascal MD [address] [place] [address] 05/16/2025 8:00 AM CDT Procedure visit [facility] Neurology [address] [place] [address] Vic Barraza MD [address] [place] [address] 06/24/2025 9:30 AM TELEGRAPH PLANT MAINTAINER Office Visit [facility] Neurology [address] [place] [address] Vic Barraza MD [address] [place] [address] 08/08/2025 11:00 AM TELEGRAPH PLANT MAINTAINER Procedure visit [facility] Neurology [address] [place] [address] Meghna Millan, HOUSE WRECKER [address] [place] [address] 11/04/2025 9:00 AM CDT Office Visit [facility] Primary Care [facility] [id number] [place] [address] China Page MD [phone] [place] [phone] documented as of this encounter Procedures Procedure Name Priority Date/Time Associated Diagnosis Comments HEPATITIS C ANTIBODY Routine 12/30/2015 9:00 AM CDT ALT Routine 12/30/2015 9:00 AM CDT documented in this encounter Results * HEPATITIS C ANTIBODY (12/30/2015 9:00 AM CDT) HEPATITIS C AB NON-REACTI VE Non-reacti ve 12/30/2015 1:15 PM CDT [facility] Blood 12/30/2015 9:0 0 AM CDT 12/30/2015 12:29 PM CDT us Elroy Whitman MD CHEMISTRY ORDERABLES Final Re sult [facility] CLIA # [id number] [address] [place] [address] * ALT (12/30/2015 9:00 AM CDT) ALT 18 <=33 U/L 12/30/2015 12:58 PM CDT [facility] Blood 12/30/2015 9:00 AM CDT 12/30/2015 12:29 PM CDT Elroy Whitman MD CHEMISTRY ORDERABLES Final Re sult Performing Organization Address [facility] Co de Phone Number [facility] [email or web address] [facility] CLIA # [id number] [facility] [address] [place] [address] documented in this encounter Visit Diagnoses Not on filedocumented in this encounter Care Teams Foam Tank Laminator Relationship Specialty [place] [id number] [phone] PCP - General 10/04/12 documented as of this encounter
--- OUTSIDE RECORDS SUMMARY | 2025-04-17 08:36 | XMS_ITS | Encounter Summary ---
Author Hub Email Address Preferred Language Unknown Marital Status Rastafari Affiliation Unknown Race White Ethnic Group Unknown Author Organization [facility] Address [address] [place] [address] Care Team Providers Care Shredded Filler Hopper Feeder Name Role Phone China Page MD Primary Care Provider [phone] Encounter Details Date Type Department Care Team (Late Contact Info) Description 10/05/2015 Lab Requisition [facility] Laboratory Services [address] [address] Elroy Whitman MD NO ADDRESS ON FILE Social History Tobacco Use Types Packs/Day Years Used Date Smoking Tobacco: Never Smokeless Tobacco: Never Alcohol Use Standard Drinks/Week Comments Yes 0 (1 standard drink = 0.6 oz pur e alcohol) rarely Comments No Sex and Gender Information Value Date Recorded Sex Assigned at Not on file Legal Sex Female 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 Gender Identity Not on file Sexual Orientation Not on file Occupation Industry Job Start Date Job End Date Not on file Not on file Not on file Not on file documented as of this encounter Plan of Treatment Upcoming Encounters Date Type Department Care Team (Late Contact Info) Description 05/13/2025 9:15 AM CDT Office Visit [facility] Pulmonology [facility] [address] [place] [address] Joe Pascal MD [address] [place] [address] 05/16/2025 8:00 AM CDT Procedure visit [facility] Neurology [address] [place] [address] Vic Barraza MD [address] [place] [address] 06/24/2025 9:30 AM PHOTOCOPYING MACHINE OPERATOR Office Visit [facility] Neurology [address] [place] [address] Vic Barraza MD [address] [place] [address] 08/08/2025 11:00 AM PHOTOCOPYING MACHINE OPERATOR Procedure visit [facility] Neurology [address] [place] [address] Meghna Millan, RELIGIOUS STUDIES PROFESSOR [address] [place] [address] 11/04/2025 9:00 AM CDT Office Visit [facility] Primary Care - [facility] [phone] [place] [phone] China Page MD [phone] [place] [phone] documented as of this encounter Procedures Procedure Name Priority Date/Time Associated Diagnosis Comments HEPATITIS B SURFACE AB, QUANT Routine 09/29/2015 6:37 PM PHOTOCOPYING MACHINE OPERATOR HIV DETECTION W/REFLX CONFIRMATION Routine 09/29/2015 6:37 PM PHOTOCOPYING MACHINE OPERATOR HEPATITIS C ANTIBODY Routine 09/29/2015 6:37 PM PHOTOCOPYING MACHINE OPERATOR ALT Routine 09/29/2015 6:37 PM PHOTOCOPYING MACHINE OPERATOR documented in this encounter Results * HIV DETECTION W/REFLX CONFIRMATION (09/29/2015 6:37 PM PHOTOCOPYING MACHINE OPERATOR) HIV-1 AND 2 ABS NON-REACTI VE Non-reacti ve 10/12/2015 10:13 AM [facility] [employer] [facility] Blood Venipuncture - L ab Collect / Unknown 09/29/2015 6:37 PM PHOTOCOPYING MACHINE OPERATOR 10/05/2015 12:59 PM PHOTOCOPYING MACHINE OPERATOR Elroy Whitman MD CHEMISTRY ORDERABLES Final Re sult Performing Organization Address [facility]/ZIP Co de Phone Number [facility] CLIA # [id number] [facility] [address] [place] [address] * HEPATITIS C ANTIBODY (09/29/2015 6:37 PM PHOTOCOPYING MACHINE OPERATOR) HEPATITIS C AB NON-REACTI VE Non-reacti ve 10/05/2015 2:13 PM PHOTOCOPYING MACHINE OPERATOR [facility] Blood Venipuncture - L ab Collect / Unknown 09/29/2015 6:37 PM PHOTOCOPYING MACHINE OPERATOR 10/05/2015 12:59 PM PHOTOCOPYING MACHINE OPERATOR Elroy Whitman MD CHEMISTRY ORDERABLES Final Re sult Performing Organization Address [facility] Co de Phone Number [facility] CLIA # [id number] [address] [address] * HEPATITIS B SURFACE AB, QUANT (09/29/2015 6:37 PM PHOTOCOPYING MACHINE OPERATOR) Pathologist [facility] HEPATITIS B SURF AB,QN 1,000.0 mlU/mL 10/05/2015 10:18 PM [facility] [employer] [facility] HEPATITIS B SURFACE AB INTERP Reactive See Interp 10/05/2015 10:18 PM [facility] Blood Venipuncture - L ab Collect / Unknown 09/29/2015 6:37 PM PHOTOCOPYING MACHINE OPERATOR 10/05/2015 12:59 PM PHOTOCOPYING MACHINE OPERATOR Narrative [facility] - 10/05/2015 10:18 PM PHOTOCOPYING MACHINE OPERATOR Patient has immunity to Hepatitis B virus. This assay is used to determine immune status to Hepatitis B as greater than or equal to 10 mIU/mL as per CDC guidelines (MMWR:vol 55: RR-16, 2006). Elroy Whitman MD CHEMISTRY ORDERABLES Final Re sult Performing Organization Address City/[facility]/ZIP Co de Phone Number [facility] [employer] [facility] CLIA# [id number] [address] [place] [address] * ALT (09/29/2015 6:37 PM PHOTOCOPYING MACHINE OPERATOR) ALT 12 <=33 U/L 10/05/2015 1:31 PM PHOTOCOPYING MACHINE OPERATOR [facility] Blood Venipuncture - L ab Collect / Unknown 09/29/2015 6:37 PM PHOTOCOPYING MACHINE OPERATOR 10/05/2015 12:59 PM PHOTOCOPYING MACHINE OPERATOR Elroy Whitman MD CHEMISTRY ORDERABLES Final Re sult Performing Organization Address City/[facility] Co de Phone Number [facility] [employer] [facility] CLIA # [id number] [address] [place] [address] documented in this encounter Visit Diagnoses Not on filedocumented in this encounter Care Teams Shredded Filler Hopper Feeder Relationship Specialty [place] [id number] [phone] PCP - General 10/04/12 documented as of this encounter
--- OUTSIDE RECORDS SUMMARY | 2025-04-17 08:36 | XMS_ITS | Encounter Summary ---
Author Organization [facility] Address [address] [place] [address] Care Team Providers Care Machine Ii Engraver Name Role Phone China Page MD Primary Care Provider [phone] Encounter Details Date Type Department Care Team (Latest Contact Info) Description 08/30/2024 Results Follow-Up [facility] Rheumatology [address] [place] [address] [place] [address] [place] [address] HLA B27, LYME ANTIBODY SCREEN [...] on file Legal Sex Female 7:22 PM POWER DISTRIBUTOR Gender Identity Not on file Sexual Orientation Not on file Occupation Industry Job Start Date Job End Date Not on file Not on file Not on file Not on file documented as of this encounter Plan of Treatment Upcoming Encounters Date Type Department Care Team (Late st Contact Info) Description 05/13/2025 9:15 AM CDT Office Visit [facility] Pulmonology [facility] [address] [facility] [address] [place] [address] Joe Pascal MD [address] [place] [address] 05/16/2025 8:00 AM CDT Procedure visit [facility] Neurology [address] [place] [address] Vic Barraza MD [address] [place] [address] 06/24/2025 9:30 AM POWER DISTRIBUTOR Office Visit [facility] Neurology [address] [place] [address] Vic Barraza MD [address] [place] [address] 08/08/2025 11:00 AM POWER DISTRIBUTOR Procedure visit [facility] Neurology [address] [place] [address] Meghna Millan, HOSEMAN [address] [place] [address] 11/04/2025 9:00 AM CDT Office Visit [facility] Primary Care - [facility] [id number] [place] [address] China Page MD [address] [place] [address] documented as of this encounter Visit Diagnoses Not on filedocumented in this encounter Care Teams Machine Ii Engraver Relationship Specialty Start Date End Date China Page MD [address] [place] [phone] PCP - General 10/04/12 documented as of this encounter
--- OUTSIDE RECORDS SUMMARY | 2025-04-17 08:36 | XMS_ITS | Encounter Summary ---
Author Organization [facility] Address [address] [place] [address] Care Team Providers Care Car Manager Name Role Phone China Page MD Primary Care Provider [phone] Encounter Details Date Type Department Care Team (Late Contact Info) Description 10/27/2015 Lab Requisition [facility] General Laboratory Services [address] [address] Elroy Whitman MD NO ADDRESS ON FILE Social History Tobacco Use Types Packs/Day Years Used Date Smoking Tobacco: Never Smokeless Tobacco: Never Alcohol Use Standard Drinks/Week Comments Yes 0 (1 standard drink = 0.6 oz pur e alcohol) rarely Comments No Sex and Gender Information Value Date Recorded Sex Assigned at Not on file Legal Sex Female 7:22 PM NONFARM ANIMAL CARETAKER Gender Identity Not on file Sexual Orientation Not on file Occupation Industry Job Start Date Job End Date Not on file Not on file Not on file Not on file documented as of this encounter Plan of Treatment Upcoming Encounters Date Type Department Care Team (Late st Contact Info) Description 05/13/2025 9:15 AM CDT Office Visit [facility] Pulmonology [facility] [address] [place] [address] Joe Pascal MD [address] [place] [address] 05/16/2025 8:00 AM CDT Procedure visit [facility] Neurology [address] [place] [address] Vic Barraza MD [address] [place] [address] 06/24/2025 9:30 AM NONFARM ANIMAL CARETAKER Office Visit [facility] Neurology [address] [place] [address] Vic Barraza MD [address] [place] [address] 08/08/2025 11:00 AM NONFARM ANIMAL CARETAKER Procedure visit [facility] Neurology [address] [place] [address] Meghna Millan, [facility] [address] [place] [address] 11/04/2025 9:00 AM CDT Office Visit [facility] Primary Care - [facility] [phone] [place] [address] China Page MD [id number] [place] [phone] documented as of this encounter Procedures Procedure Name Priority Date/Time Associated Diagnosis Comments HEPATITIS C RNA PCR, QUANTITATIVE Routine 10/27/2015 8:45 AM CDT documented in this encounter Results * HEPATITIS C RNA PCR, QUANTITATIVE (10/27/2015 8:45 AM CDT) HEPATITIS C RNA PCR, QUANT Undetected Undetected IU/mL 10/28/2015 5:38 PM CDT [facility] [employer] [facility] Comment: Result in log IU/mL is Undetected. ADDITIONAL INFORMATION The quantification range of this assay is 15 to 100,000,000 IU/mL (1.18 log to 8.00 log IU/mL). Testing was performed by the [employer] AmpliPrep/TAI TaqMan HCV Test, version 2.0 ([employer] Test Performed by: [place] [address] Shucker: Joaquin Wiggins II, M.D., Ph.D. Blood specimen (specimen) 10/27/2015 8:45 AM CDT 10/27/2015 12:25 PM CDT us Elroy Whitman MD CHEMISTRY ORDERABLES Final Re sult [facility] documented in this encounter Visit Diagnoses Not on filedocumented in this encounter Care Teams Car Manager Relationship Specialty [place] [id number] [phone] PCP - General 10/04/12 documented as of this encounter
== END ==
LOC: EXPTRAD 08:14
PROVIDERS: PCP Plastic Surgery; Visit Provider Plastic Surgery
DX: S63.511A Sprain of carpal joint of right wrist, initial encounter (principal); X58.XXXA Exposure to other specified factors, initial encounter
CPT/HCPCS: 73110